=== PATIENT | male | born 1985 | race Caucasian/White ===

== ENCOUNTER 2023-05-01 07:33 | Outpatient (CLI) | payer MEDICAID, SELFPAY | END 2023-05-01 07:34 | disposition home or self-care (01) | LOC: NFLDREF 11:08 | PROVIDERS: PCP Family Medicine; Referring Provider Family Medicine; Visit Provider Family Medicine | DX: Z13.1 Encounter for screening for diabetes mellitus (principal); Z13.6 Encounter for screening for cardiovascular disorders | CPT/HCPCS: 80061; 82947 ==

== ENCOUNTER 2023-08-31 15:10 | Outpatient (CLI) | payer MEDICAID, SELFPAY | END 2023-08-31 15:11 | disposition home or self-care (01) | LOC: AMB 09-01 12:32 | PROVIDERS: PCP Family Medicine; Visit Provider Student in an Organized Health Care Education/Training Program | DX: F10.129 Alcohol abuse with intoxication, unspecified (principal) | CPT/HCPCS: A0425; A0427 ==

== ENCOUNTER 2023-08-31 15:24 | Emergency (ER) | payer MEDICAID, SELFPAY ==
[2023-08-31] VITALS (7 sets, daily range): BP systolic 112–120; BP diastolic 70–94; PULSE 99–135; RESP 16–18; TEMP 36.9–37.7; O2SAT 96–98; BMI 24.4
[2023-08-31] MEDS: 0.9 % SODIUM CHLORIDE 1000 ml 1,000 ML IV ×2 (16:12→19:23)
--- NOTE | 2023-08-31 16:13 | PC.NURSE ---
pt given food tray.
[2023-08-31 16:14] LABS: Basophils Absolute Auto 0.02 K/uL (0.00-0.30); Basophils Percent Auto 0.4 % (0.0-3.0); Eosinophils Absolute Auto 0.02 K/uL (0.00-0.50); Eosinophils Percent Auto 0.4 % (0.0-7.0); Hematocrit 53.8 % (37.0-53.0); Hemoglobin* 18.2 gm/dL (13.5-17.5); Immature Granulocytes Abs Auto 0.01 K/uL (0.00-0.30); Immature Granulocytes Pct Auto 0.2 %; Lymphocytes Absolute Auto 1.68 K/uL (0.90-2.90); Lymphocytes Percent Auto 31.1 % (20-44); Mean Corpuscular HGB Conc 34 gm/dL (32-36); Mean Corpuscular Hemoglobin 30 pg (26-34); Mean Corpuscular Volume 88 fL (80-100); Neutrophils Absolute Auto 3.41 K/uL (1.7-7.0); Neutrophils Percent Auto 62.9 % (42.0-72.0); Platelet Count* 223 K/uL (140-440); RDW Coefficient of Variation % 12.8 % (11.5-15.5); Red Blood Count 6.12 m/uL (4.30-5.90); White Blood Count* 5.41 K/uL (4.50-11.00)
[2023-08-31 16:16] LABS: Albumin* 4.8 g/dL (3.3-5.0); Chloride* 105 mmol/L (96-114); Potassium* 4.3 mmol/L (3.6-5.1); Sodium* 145 mmol/L (135-149)
[2023-08-31 16:18] LABS: Creatinine* 0.8 mg/dL (0.5-1.5); Estimated Glomerular Filt Rate 115 ml/min
[2023-08-31 16:19] LABS: Alanine Aminotransferase* 45 U/L (4-50); Alkaline Phosphatase* 95 U/L (40-150); Anion Gap 22 mEq/L (7-15); Aspartate Amino Transferase* 74 U/L (12-35); Bilirubin Total* 1.1 mg/dL (0.1-1.5); Blood Urea Nitrogen* 24 mg/dL (5-24); Calcium* 8.5 mg/dL (8.4-10.6); Carbon Dioxide* 18 mmol/L (20-32); Glucose* 86 mg/dL (60-115); Total Protein* 7.9 g/dL (6.0-8.3)
[2023-08-31 16:22] LABS: Slide Review Reflex No
[2023-08-31 16:37] LABS: Ethanol* 0.47 % (0.01-0.03)
--- NOTE | 2023-08-31 17:27 | PC.NURSE ---
Spoke with patient's Tonya. Tonya states pt has been trying to get control of his drinking, attending day treatment. Recently at [facility] in [place] for medical detox last March. Tonya did call and was told they didn't have an opening for pt until Monday. Tonya said pt has been working on sobriety for last year but every three months or so he slips.
--- NOTE | 2023-08-31 18:22 | PC.NURSE ---
pt requesting sandwich and coke to drink. states he has not been eating while staying at a nearby hotel. pt states he was staying at a [facility] in [place] but left to get hammered and has been in a hotel, eating a frozen meals last few days.
--- NOTE | 2023-08-31 18:55 | ED_ITS ---
HPI - General Adult General Date Seen: 08/31/23 <Daniele Ailyn Devon - Last Filed: 09/01/23 11:22> Chief complaint: Altered Mental Status <Daniele Osorio - Last Filed: 09/01/23 11:22> Stated complaint: ETOH <Daniele Osorio - Last Filed: 09/01/23 11:22> Time Seen by Provider: 08/31/23 15:33 <Daniele Ailyn Devon - Last Filed: 09/01/23 11:22> Source: patient <Daniele Osorio - Last Filed: 09/01/23 11:22> Mode of arrival: EMS <Daniele Osorio - Last Filed: 09/01/23 11:22> Limitations: no limitations <Daniele Osorio - Last Filed: 09/01/23 11:22> History of Present Illness HPI narrative: Patient is a 38-year-old male presenting to emergency department for alcohol intoxication. Patient has had issues with alcohol intoxication in the past and has been to multiple detox centers. He was living in a sober living home up until a few days ago when he left he moved into a hotel. He has been drinking however the for the past 2 days unsteady drink two 1.75 L follows of alcohol today. His significant other called in a well check on him and when they arrived he was very intoxicated. He was brought to the emergency department for this. He does states he has a history of ADHD and takes Adderall for but denies taking any extra doses today. Denies fevers, chills, chest pain, shortness of breath, headache, vision changes. Patient is slurring his words but is able a ambulate. <Danielejudith Osorio - Last Filed: 09/01/23 11:22> Related Data Home medications: Home Medications Medication Instructions Recorded Confirmed hydroxyzine HCl 50 mg tablet 50 mg PO BID PRN 11/03/22 05/11/23 Previous Rx's Medication Instructions Recorded escitalopram oxalate 10 mg tablet 10 mg PO DAILY #90 tabs 05/11/23 naltrexone 50 mg tablet 50 mg PO DAILY #90 tabs 05/11/23 trazodone 100 mg tablet 100 mg PO QHS PRN insomnia #90 tabs 05/11/23 dextroamphetamine-amphetamine ER 25 mg PO QAM #30 caps 07/12/23 25 mg 24hr capsule,extend release <Daniele Osorio DO - Last Filed: 09/01/23 11:22> Allergies/adverse reactions: Allergies Allergy/AdvReac Type Severity Reaction Status Date / Time Penicillins Allergy Mild Rash Verified 08/31/23 15:35 <Daniele Osorio DO - Last Filed: 09/01/23 11:22> Review of Systems Status of ROS: Reports: 10 or more systems reviewed and unremarkable except as noted in History and below <Daniele Osorio DO - Last Filed: 09/01/23 11:22> PFSH PFS Social History: Social History What is your current living situation?: I presently have a place to live In the past 12 months, utilities in danger of being shut off: no In past 12 months, lack of transportation kept you from medical appts, meetings, work, or getting things needed for daily living: no In the past 12 mos, have been you worried that your food would run out before you had money to buy more?: never true In the past 12 mos, the food you bought just didn't last and you didn't have money to buy more?: never true Smoking Status: Current every day smoker How often do you have a drink containing alcohol: 4 or more times a week How many standard drinks containing alcohol do you have on a typical day: 10 or more How often do you have six or more drinks on one occasion: Daily or almost daily AUDIT-C Alcohol total score: 12 Non-prescribed substance use: denies use How often does anyone, including family, friends and others, physically hurt you : never How often does anyone, including family, friends and others, insult or talk down to you: never How often does anyone, including family, friends and others, threaten you with harm: never How often does anyone, including family, friends and others, scream or curse at you: never Little interest or pleasure in doing things: not at all Feeling down, depressed, or hopeless: not at all service: No <DO Shruti Rosas Last Filed: 09/01/23 11:22> Exam Narrative: Exam Narrative: Const: Well-nourished, Well-developed, appears intoxicated Eyes: PERRL, no conjunctival injection, and symmetrical lids HENT: Atraumatic external nose and ears. Moist mucous membranes. Neck: Symmetric, trachea midline, No thyromegaly. CVS: RRR, No murmurs or gallops. Peripheral pulses 2+ and equal in all extremities RESP: Unlabored respiratory effort. Clear to auscultation bilaterally. GI: Nontender/Nondistended, No rebound or guarding. MSK:Extremities w/o deformity, Normal Active ROM Skin: Warm, Dry. No rashes or lesions. Neuro: Normal Muscle tone, No focal neurological deficits. Psych: Awake, Alert, & Oriented x3. <Daniele Osoiro DO - Last Filed: 09/01/23 11:22> Const: Vital Signs, click to edit/add: Vital Signs - 24 hr 08/31/23 15:31 08/31/23 15:35 08/31/23 15:48 Temperature 98.5 F Pulse Rate 100 113 H Pulse Rate [Right Pulse Oximeter] 99 Respiratory Rate 18 Blood Pressure [Ri ght Upper Arm] 118/94 H Pulse Oximetry 97 98 97 Oxygen Delivery Me thod Room Air 08/31/23 17:22 08/31/23 18:22 08/31/23 19:30 Temperature 99.7 F H 99.9 F H Pulse Rate Pulse Rate [Right Pulse Oximeter] 112 H 135 H 112 H Respiratory Rate 18 18 18 Blood Pressure [Ri ght Upper Arm] 120/74 117/77 117/70 Pulse Oximetry 96 97 97 Oxygen Delivery Me thod Room Air Room Air Room Air 08/31/23 19:59 Temperature 99.9 F H Pulse Rate Pulse Rate [Right Pulse Oximeter] 102 H Respiratory Rate 16 Blood Pressure [Ri ght Upper Arm] 112/80 Pulse Oximetry 98 Oxygen Delivery Me thod Room Air <Daniele Osorio DO - Last Filed: 09/01/23 11:22> Vital Signs, click to edit/add: Vital Signs - 24 hr 08/31/23 15:31 08/31/23 15:35 08/31/23 15:48 Temperature 98.5 F Pulse Rate 100 113 H Pulse Rate [Right Pulse Oximeter] 99 Respiratory Rate 18 Blood Pressure [Ri ght Upper Arm] 118/94 H Pulse Oximetry 97 98 97 Oxygen Delivery Me thod Room Air 08/31/23 17:22 08/31/23 18:22 08/31/23 19:30 Temperature 99.7 F H 99.9 F H Pulse Rate Pulse Rate [Right Pulse Oximeter] 112 H 135 H 112 H Respiratory Rate 18 18 18 Blood Pressure [Ri ght Upper Arm] 120/74 117/77 117/70 Pulse Oximetry 96 97 97 Oxygen Delivery Me thod Room Air Room Air Room Air 08/31/23 19:59 Temperature 99.9 F H Pulse Rate Pulse Rate [Right Pulse Oximeter] 102 H Respiratory Rate 16 Blood Pressure [Ri ght Upper Arm] 112/80 Pulse Oximetry 98 Oxygen Delivery Me thod Room Air <Richelle Freeman MD - Last Filed: 08/31/23 21:28> Course Vital Signs Vital signs: Initial Vital Signs Temperature 98.5 F 08/31/23 15:31 Temperature Source Temporal Artery Scan 08/31/23 15:31 Pulse Rate 99 08/31/23 15:31 Respiratory Rate 18 08/31/23 15:31 Blood Pressure 118/94 H 08/31/23 15:31 Blood Pressure Mean 102 08/31/23 15:31 Blood Pressure Position Supine 08/31/23 15:31 Pulse Oximetry 97 08/31/23 15:31 Oxygen Delivery Method Room Air 08/31/23 15:31 Vital Signs Temperature 98.5 F 08/31/23 15:31 Pulse Rate 99 08/31/23 15:31 Respiratory Rate 18 08/31/23 15:31 Blood Pressure 118/94 H 08/31/23 15:31 Pulse Oximetry 97 08/31/23 15:31 Oxygen Delivery Method Room Air 08/31/23 15:31 Temperature 99.9 F H 08/31/23 19:59 Pulse Rate 102 H 08/31/23 19:59 Respiratory Rate 16 08/31/23 19:59 Blood Pressure 112/80 08/31/23 19:59 Pulse Oximetry 98 08/31/23 19:59 Oxygen Delivery Method Room Air 08/31/23 19:59 <Daniele Osorio DO - Last Filed: 09/01/23 11:22> Initial Vital Signs Temperature 98.5 F 08/31/23 15:31 Temperature Source Temporal Artery Scan 08/31/23 15:31 Pulse Rate 99 08/31/23 15:31 Respiratory Rate 18 08/31/23 15:31 Blood Pressure 118/94 H 08/31/23 15:31 Blood Pressure Mean 102 08/31/23 15:31 Blood Pressure Position Supine 08/31/23 15:31 Pulse Oximetry 97 08/31/23 15:31 Oxygen Delivery Method Room Air 08/31/23 15:31 Vital Signs Temperature 98.5 F 08/31/23 15:31 Pulse Rate 99 08/31/23 15:31 Respiratory Rate 18 08/31/23 15:31 Blood Pressure 118/94 H 08/31/23 15:31 Pulse Oximetry 97 08/31/23 15:31 Oxygen Delivery Method Room Air 08/31/23 15:31 Temperature 99.9 F H 08/31/23 19:59 Pulse Rate 102 H 08/31/23 19:59 Respiratory Rate 16 08/31/23 19:59 Blood Pressure 112/80 08/31/23 19:59 Pulse Oximetry 98 08/31/23 19:59 Oxygen Delivery Method Room Air 08/31/23 19:59 <Richelle Freeman MD - Last Filed: 08/31/23 21:28> Medications Administered Medications: Discontinued Medications Generic Name Dose Route Start Last Admin Trade Name Rehan PRN Reason Stop Dose Admin Sodium Chloride 1,000 mls @ 1,000 mls/hr 08/31/23 16:00 08/31/23 18:13 0.9 % Sodium Chloride 1000 Ml IV 08/31/23 16:59 Infused .Q1H ISH Infusion Sodium Chloride 1,000 mls @ 1,000 mls/hr 08/31/23 19:15 08/31/23 19:23 0.9 % Sodium Chloride 1000 Ml IV 08/31/23 20:14 1,000 mls/hr .Q1H ISH Administration Lorazepam 0.5 mg 08/31/23 20:03 08/31/23 20:00 Lorazepam 2 Mg/Ml Inj IVP 08/31/23 20:04 0.5 mg ONCE ONE Administration Lorazepam 1 mg 08/31/23 21:21 08/31/23 21:28 Lorazepam 2 Mg/Ml Inj IVP 08/31/23 21:22 1 mg ONCE ONE Administration Thiamine HCl 100 mg 08/31/23 19:03 08/31/23 19:23 Thiamine 100 Mg Tablet PO 08/31/23 19:04 100 mg ONCE ONE Administration <Daniele Osorio DO - Last Filed: 09/01/23 11:22> Discontinued Medications Generic Name Dose Route Start Last Admin Trade Name Rehan PRN Reason Stop Dose Admin Sodium Chloride 1,000 mls @ 1,000 mls/hr 08/31/23 16:00 08/31/23 18:13 0.9 % Sodium Chloride 1000 Ml IV 08/31/23 16:59 Infused .Q1H ISH Infusion Sodium Chloride 1,000 mls @ 1,000 mls/hr 08/31/23 19:15 08/31/23 19:23 0.9 % Sodium Chloride 1000 Ml IV 08/31/23 20:14 1,000 mls/hr .Q1H ISH Administration Lorazepam 0.5 mg 08/31/23 20:03 08/31/23 20:00 Lorazepam 2 Mg/Ml Inj IVP 08/31/23 20:04 0.5 mg ONCE ONE Administration Lorazepam 1 mg 08/31/23 21:21 08/31/23 21:28 Lorazepam 2 Mg/Ml Inj IVP 08/31/23 21:22 1 mg ONCE ONE Administration Thiamine HCl 100 mg 08/31/23 19:03 08/31/23 19:23 Thiamine 100 Mg Tablet PO 08/31/23 19:04 100 mg ONCE ONE Administration <Richelle Freeman MD - Last Filed: 08/31/23 21:28> Medical Decision Making MDM Narrative Medical decision making narrative: Patient is a 38-year-old male presents to the emergency department for alcohol intoxication. Cbc and CMP were ordered. Also ordered an alcohol level. The alcohol level 0.47. Cbc and CMP showed no concerning abnormalities. He is quite obviously very drunk but has been ambulating to his bathroom and back. He is 30 his words but is able to communicate. At this time he is agreeable for for detox. Patient has been given food and water. Patient was very anxious and was given a small dose of Ativan. He is accepted for transfer for detox center but his alcohol of SB under 0.4. We will recheck his EtOH. Patient signed out to Dr. Freeman pending final transfer <Daniele Osorio DO - Last Filed: 09/01/23 11:22> Patient is a 38-year-old male presents to the emergency department for alcohol intoxication. Cbc and CMP were ordered. Also ordered an alcohol level. The alcohol level 0.47. Cbc and CMP showed no concerning abnormalities. He is quite obviously very drunk but has been ambulating to his bathroom and back. He is 30 his words but is able to communicate. At this time he is agreeable for for detox. Patient has been given food and water. Patient was very anxious and was given a small dose of Ativan. He is accepted for transfer for detox center but his alcohol of SB under 0.4. We will recheck his EtOH. Patient signed out to Dr. Freeman pending final transfer I was asked by previous physician to document 2nd alcohol level and transfer of patient. Second alcohol level comes back at 0.28 and [facility] detox will accept patient. He travels by ground BLS ambulance. Prior to discharge nursing requests Ativan and 1 mg IV is ordered. Patient is placed on a transfer hold but is going voluntarily. <Richelle Freeman MD - Last Filed: 08/31/23 21:28> Lab Data Labs: Lab Results 08/31/23 08/31/23 08/31/23 Range/Units 15:48 15:48 19:10 WBC 5.41 (4.50-11.00) K/uL RBC 6.12 H (4.30-5.90) m/uL Hgb 18.2 H (13.5-17.5) gm/dL Hct 53.8 H (37.0-53.0) % MCV 88 (80-100) fL MCH 30 (26-34) pg MCHC 34 (32-36) gm/dL RDW Coeff of Amanda 12.8 (11.5-15.5) % Plt Count 223 (140-440) K/uL Neut % (Auto) 62.9 (42.0-72.0) % Lymph % (Auto) 31.1 (20-44) % [place] % (Auto) 5.0 (0.0-11.0) % Eos % (Auto) 0.4 (0.0-7.0) % Baso % (Auto) 0.4 (0.0-3.0) % Neut # (Auto) 3.41 (1.7-7.0) K/uL Lymph # (Auto) 1.68 (0.90-2.90) K/uL [place] # (Auto) 0.30 (0.00-0.90) K/UL Eos # (Auto) 0.02 (0.00-0.50) K/uL Baso # (Auto) 0.02 (0.00-0.30) K/uL Abs Immat Gran (auto) 0.01 (0.00-0.30) K/uL Imm/Tot Granulo (auto) 0.2 % Sodium 145 (135-149) mmol/L Potassium 4.3 (3.6-5.1) mmol/L Chloride 105 (96-114) mmol/L Carbon Dioxide 18 L (20-32) mmol/L Anion Gap 22 H (7-15) mEq/L BUN 24 (5-24) mg/dL Creatinine 0.8 (0.5-1.5) mg/dL Estimated Creat Clear 128.00 Estimated GFR 115 ml/min Glucose 86 (60-115) mg/dL Calcium 8.5 (8.4-10.6) mg/dL Total Bilirubin 1.1 (0.1-1.5) mg/dL AST 74 H (12-35) U/L ALT 45 (4-50) U/L Alkaline Phosphatase 95 (40-150) U/L Total Protein 7.9 (6.0-8.3) g/dL Albumin 4.8 (3.3-5.0) g/dL Urine Color (Yellow) Urine Appearance (Clear) Urine pH (5.0-8.5) Ur Specific [place] (1.000-1.030) Urine Protein (Negative) Urine Glucose (UA) (Negative) Urine Ketones (Negative) Urine Blood (Negative) Urine Nitrite (Negative) Urine Bilirubin (Negative) Urine Urobilinogen (0.2-1.0) Ur Leukocyte Esterase (Negative) Urine RBC (0-2) Urine WBC (0-5) Ur Squamous Epith Cells (None-Few) Urine Bacteria (None) Urine Opiates Screen (Negative) Ur Oxycodone Screen (Negative) Urine Methadone Screen (Negative) Ur Propoxyphene Screen Ur Barbiturates Screen (Negative) U Tricyclic Antidepress (Negative) Ur Phencyclidine Scrn (Negative) Ur Amphetamines Screen (Negative) U Methamphetamines Scrn (Negative) U Benzodiazepines Scrn (Negative) Urine Cocaine Screen (Negative) U Marijuana (THC) Screen (Negative) Ur Drug Screen Comment Ethyl Alcohol Cancelled 0.47 H* 0.28 H 08/31/23 Range/Units 20:10 WBC (4.50-11.00) K/uL RBC (4.30-5.90) m/uL Hgb (13.5-17.5) gm/dL Hct (37.0-53.0) % MCV (80-100) fL MCH (26-34) pg MCHC (32-36) gm/dL RDW Coeff of Amanda (11.5-15.5) % Plt Count (140-440) K/uL Neut % (Auto) (42.0-72.0) % Lymph % (Auto) (20-44) % [place] % (Auto) (0.0-11.0) % Eos % (Auto) (0.0-7.0) % Baso % (Auto) (0.0-3.0) % Neut # (Auto) (1.7-7.0) K/uL Lymph # (Auto) (0.90-2.90) K/uL [place] # (Auto) (0.00-0.90) K/UL Eos # (Auto) (0.00-0.50) K/uL Baso # (Auto) (0.00-0.30) K/uL Abs Immat Gran (auto) (0.00-0.30) K/uL Imm/Tot Granulo (auto) % Sodium (135-149) mmol/L Potassium (3.6-5.1) mmol/L Chloride (96-114) mmol/L Carbon Dioxide (20-32) mmol/L Anion Gap (7-15) mEq/L BUN (5-24) mg/dL Creatinine (0.5-1.5) mg/dL Estimated Creat Clear Estimated GFR ml/min Glucose (60-115) mg/dL Calcium (8.4-10.6) mg/dL Total Bilirubin (0.1-1.5) mg/dL AST (12-35) U/L ALT (4-50) U/L Alkaline Phosphatase (40-150) U/L Total Protein (6.0-8.3) g/dL Albumin (3.3-5.0) g/dL Urine Color Radha A (Yellow) Urine Appearance Clear (Clear) Urine pH 5.5 (5.0-8.5) Ur Specific Jacob[place] >= 1.030 (1.000-1.030) Urine Protein 2+ A (Negative) Urine Glucose (UA) Negative (Negative) Urine Ketones 2+ A (Negative) Urine Blood Negative (Negative) Urine Nitrite Negative (Negative) Urine Bilirubin Negative (Negative) Urine Urobilinogen 0.2 (0.2-1.0) Ur Leukocyte Esterase Negative (Negative) Urine RBC 0-2 (0-2) Urine WBC 0-2 (0-5) Ur Squamous Epith Cells None (None-Few) Urine Bacteria None (None) Urine Opiates Screen Negative (Negative) Ur Oxycodone Screen Negative (Negative) Urine Methadone Screen Negative (Negative) Ur Propoxyphene Screen Not Reportable Ur Barbiturates Screen Negative (Negative) U Tricyclic Antidepress Negative (Negative) Ur Phencyclidine Scrn Negative (Negative) Ur Amphetamines Screen Negative (Negative) U Methamphetamines Scrn Negative (Negative) U Benzodiazepines Scrn Negative (Negative) Urine Cocaine Screen Negative (Negative) U Marijuana (THC) Screen POSITIVE A (Negative) Ur Drug Screen Comment See Note Ethyl Alcohol <Daniele Osorio, DO - Last Filed: 09/01/23 11:22> Lab Results 08/31/23 08/31/23 08/31/23 Range/Units 15:48 15:48 19:10 WBC 5.41 (4.50-11.00) K/uL RBC 6.12 H (4.30-5.90) m/uL Hgb 18.2 H (13.5-17.5) gm/dL Hct 53.8 H (37.0-53.0) % MCV 88 (80-100) fL MCH 30 (26-34) pg MCHC 34 (32-36) gm/dL RDW Coeff of Amanda 12.8 (11.5-15.5) % Plt Count 223 (140-440) K/uL Neut % (Auto) 62.9 (42.0-72.0) % Lymph % (Auto) 31.1 (20-44) % [place] % (Auto) 5.0 (0.0-11.0) % Eos % (Auto) 0.4 (0.0-7.0) % Baso % (Auto) 0.4 (0.0-3.0) % Neut # (Auto) 3.41 (1.7-7.0) K/uL Lymph # (Auto) 1.68 (0.90-2.90) K/uL [place] # (Auto) 0.30 (0.00-0.90) K/UL Eos # (Auto) 0.02 (0.00-0.50) K/uL Baso # (Auto) 0.02 (0.00-0.30) K/uL Abs Immat Gran (auto) 0.01 (0.00-0.30) K/uL Imm/Tot Granulo (auto) 0.2 % Sodium 145 (135-149) mmol/L Potassium 4.3 (3.6-5.1) mmol/L Chloride 105 (96-114) mmol/L Carbon Dioxide 18 L (20-32) mmol/L Anion Gap 22 H (7-15) mEq/L BUN 24 (5-24) mg/dL Creatinine 0.8 (0.5-1.5) mg/dL Estimated Creat Clear 128.00 Estimated GFR 115 ml/min Glucose 86 (60-115) mg/dL Calcium 8.5 (8.4-10.6) mg/dL Total Bilirubin 1.1 (0.1-1.5) mg/dL AST 74 H (12-35) U/L ALT 45 (4-50) U/L Alkaline Phosphatase 95 (40-150) U/L Total Protein 7.9 (6.0-8.3) g/dL Albumin 4.8 (3.3-5.0) g/dL Urine Color (Yellow) Urine Appearance (Clear) Urine pH (5.0-8.5) Ur Specific [place] (1.000-1.030) Urine Protein (Negative) Urine Glucose (UA) (Negative) Urine Ketones (Negative) Urine Blood (Negative) Urine Nitrite (Negative) Urine Bilirubin (Negative) Urine Urobilinogen (0.2-1.0) Ur Leukocyte Esterase (Negative) Urine RBC (0-2) Urine WBC (0-5) Ur Squamous Epith Cells (None-Few) Urine Bacteria (None) Urine Opiates Screen (Negative) Ur Oxycodone Screen (Negative) Urine Methadone Screen (Negative) Ur Propoxyphene Screen Ur Barbiturates Screen (Negative) U Tricyclic Antidepress (Negative) Ur Phencyclidine Scrn (Negative) Ur Amphetamines Screen (Negative) U Methamphetamines Scrn (Negative) U Benzodiazepines Scrn (Negative) Urine Cocaine Screen (Negative) U Marijuana (THC) Screen (Negative) Ur Drug Screen Comment Ethyl Alcohol Cancelled 0.47 H* 0.28 H 08/31/23 Range/Units 20:10 WBC (4.50-11.00) K/uL RBC (4.30-5.90) m/uL Hgb (13.5-17.5) gm/dL Hct (37.0-53.0) % MCV (80-100) fL MCH (26-34) pg MCHC (32-36) gm/dL RDW Coeff of Amanda (11.5-15.5) % Plt Count (140-440) K/uL Neut % (Auto) (42.0-72.0) % Lymph % (Auto) (20-44) % [place] % (Auto) (0.0-11.0) % Eos % (Auto) (0.0-7.0) % Baso % (Auto) (0.0-3.0) % Neut # (Auto) (1.7-7.0) K/uL Lymph # (Auto) (0.90-2.90) K/uL [place] # (Auto) (0.00-0.90) K/UL Eos # (Auto) (0.00-0.50) K/uL Baso # (Auto) (0.00-0.30) K/uL Abs Immat Gran (auto) (0.00-0.30) K/uL Imm/Tot Granulo (auto) % Sodium (135-149) mmol/L Potassium (3.6-5.1) mmol/L Chloride (96-114) mmol/L Carbon Dioxide (20-32) mmol/L Anion Gap (7-15) mEq/L BUN (5-24) mg/dL Creatinine (0.5-1.5) mg/dL Estimated Creat Clear Estimated GFR ml/min Glucose (60-115) mg/dL Calcium (8.4-10.6) mg/dL Total Bilirubin (0.1-1.5) mg/dL AST (12-35) U/L ALT (4-50) U/L Alkaline Phosphatase (40-150) U/L Total Protein (6.0-8.3) g/dL Albumin (3.3-5.0) g/dL Urine Color Radha A (Yellow) Urine Appearance Clear (Clear) Urine pH 5.5 (5.0-8.5) Ur Specific [place] >= 1.030 (1.000-1.030) Urine Protein 2+ A (Negative) Urine Glucose (UA) Negative (Negative) Urine Ketones 2+ A (Negative) Urine Blood Negative (Negative) Urine Nitrite Negative (Negative) Urine Bilirubin Negative (Negative) Urine Urobilinogen 0.2 (0.2-1.0) Ur Leukocyte Esterase Negative (Negative) Urine RBC 0-2 (0-2) Urine WBC 0-2 (0-5) Ur Squamous Epith Cells None (None-Few) Urine Bacteria None (None) Urine Opiates Screen Negative (Negative) Ur Oxycodone Screen Negative (Negative) Urine Methadone Screen Negative (Negative) Ur Propoxyphene Screen Not Reportable Ur Barbiturates Screen Negative (Negative) U Tricyclic Antidepress Negative (Negative) Ur Phencyclidine Scrn Negative (Negative) Ur Amphetamines Screen Negative (Negative) U Methamphetamines Scrn Negative (Negative) U Benzodiazepines Scrn Negative (Negative) Urine Cocaine Screen Negative (Negative) U Marijuana (THC) Screen POSITIVE A (Negative) Ur Drug Screen Comment See Note Ethyl Alcohol <Richelle Freeman MD - Last Filed: 08/31/23 21:28> Discharge Plan Discharge Prescriptions: No Action hydroxyzine HCl 50 mg tablet 50 mg PO BID PRN escitalopram oxalate 10 mg tablet 10 mg PO DAILY Qty: 90 3RF naltrexone 50 mg tablet 50 mg PO DAILY Qty: 90 3RF trazodone 100 mg tablet 100 mg PO QHS PRN (Reason: insomnia) Qty: 90 3RF dextroamphetamine-amphetamine 25 mg capsule,extended release 24hr 25 mg PO QAM Qty: 30 0RF Rx Instructions: Follow due Oct 2023 <Daniele Osorio DO - Last Filed: 09/01/23 11:22> Follow Up/Referrals: Shahid Mcdonnell MD [Primary Care Provider] - <Daniele Osorio DO - Last Filed: 09/01/23 11:22>
--- NOTE | 2023-08-31 19:17 | PC.NURSE ---
[facility] accepts pt. Will call back with ETA after transport arranged. Spoke with Maryana # .
[2023-08-31] MEDS: THIAMINE 100 MG TABLET PO (19:23)
[2023-08-31] MEDS: LORazepam 2 MG/ML inj 0.5 MG IVP (20:00)
[2023-08-31 20:18] LABS: Ethanol* 0.28 % (0.01-0.03)
[2023-08-31 20:21] LABS: Appearance Urine Clear (Clear); Bilirubin Urine Negative (Negative); Blood Urine Negative (Negative); Color Urine Amber (Yellow); Glucose Urine Negative (Negative); Ketones Urine 2+ (Negative); Leukocyte Esterase Urine Negative (Negative); Nitrite Urine Negative (Negative); Protein Urine 2+ (Negative); Specific Gravity Urine >= 1.030 (1.000-1.030); Urobilinogen Urine 0.2 (0.2-1.0); pH Urine 5.5 (5.0-8.5)
[2023-08-31 20:28] LABS: Amphetamine Screen Urine Negative (Negative); Barbiturate Screen Urine Negative (Negative); Benzodiazepines Screen Urine Negative (Negative); Cannabinoid Screen Urine POSITIVE (Negative); Cocaine Screen Urine Negative (Negative); Methadone Screen Urine Negative (Negative); Methamphetamines Screen Urine Negative (Negative); Opiate Screen Urine Negative (Negative); Oxycodone Screen Urine Negative (Negative); Phencyclidine Screen Urine Negative (Negative); Tricyclic Antidepressant Urine Negative (Negative)
[2023-08-31 20:31] LABS: RBC Urine 0-2 (0-2); WBC Urine 0-2 (0-5)
[2023-08-31] MEDS: LORazepam 2 MG/ML inj 1 MG IVP (21:28)
--- NOTE | 2023-08-31 21:28 | PC.NURSE ---
[facility] here, report given. Ativan 1mg given prior to transfer.
== END 2023-08-31 21:33 | disposition home or self-care (01) ==
PROVIDERS: Emergency Provider Student in an Organized Health Care Education/Training Program; PCP Family Medicine
DX: F10.129 Alcohol abuse with intoxication, unspecified (principal); Y90.1 Blood alcohol level of 20-39 mg/100 ml
CPT/HCPCS: 36415; 80053; 80306; 81003; 81015; 82077; 85025; 96374; 96376; 99283; A9270; J2060; J7030

== ENCOUNTER 2023-08-31 21:18 | Outpatient (CLI) | payer MEDICAID, SELFPAY | END 2023-08-31 21:19 | disposition home or self-care (01) | LOC: AMB 09-07 16:18 | PROVIDERS: PCP Family Medicine; Visit Provider Family Medicine | DX: F10.20 Alcohol dependence, uncomplicated (principal) | CPT/HCPCS: A0425; A0428 ==

== ENCOUNTER 2024-01-04 21:48 | Outpatient (CLI) | payer MEDICAID, SELFPAY | END 2024-01-04 21:49 | disposition home or self-care (01) | LOC: AMB 01-07 05:32 | PROVIDERS: PCP Family Medicine; Visit Provider Emergency Medicine | DX: F10.129 Alcohol abuse with intoxication, unspecified (principal); S09.90XA Unspecified injury of head, initial encounter; S59.912A Unspecified injury of left forearm, initial encounter; W18.30XA Fall on same level, unspecified, initial encounter; Y92.512 Supermarket, store or market as the place of occurrence of the external cause | CPT/HCPCS: A0425; A0427 ==

== ENCOUNTER 2024-01-04 22:16 | Emergency (ER) | payer MEDICAID, SELFPAY ==
[2024-01-04] VITALS (8 sets, daily range): BP systolic 111–132; BP diastolic 75–88; PULSE 100–109; TEMP 36.6; O2SAT 98–100; BMI 24.4
[2024-01-04] MEDS: fentaNYL 100 MCG/2 ML inj 50 MCG IVP ×4 (22:25→23:52)
--- NOTE | 2024-01-04 22:28 | XR_ITS ---
Patient: NIGEL FLORES Facility:?[facility] Patient ID:?[id number] Site Patient ID:?[id number]. Site :?[id number] Study:?XRay-Extremity Left ELBOW 2 VIEWS-01/04/2024 11:04:33 PM Ordering Physician:CODY Final Report: INDICATION: Left elbow injury and pain. TECHNIQUE: Left elbow 2 view. COMPARISON: None. FINDINGS: There is posterior dislocation of the radius and ulna relative to the humerus. Fracture fragment along the anterior joint space may be arising from the coronoid process of the ulna. Mild posterior soft tissue swelling. IMPRESSION: Elbow dislocation with fracture fragment along the anterior joint space. Dictated by Caitlin Dawkins MD @ 01/04/2024 11:13:56 PM Signed by:?Caitlin Dawkins MD @01/04/2024 11:13:56 PM (Electronic Signature)
[2024-01-04] MEDS: KETOROLAC 15 MG/ML inj IVP (22:42)
[2024-01-04] MEDS: 0.9 % SODIUM CHLORIDE 1000 ml 1,000 ML IV ×2 (22:42→23:56)
[2024-01-04 22:56] LABS: Basophils Absolute Auto 0.03 K/uL (0.00-0.30); Basophils Percent Auto 0.3 % (0.0-3.0); Eosinophils Absolute Auto 0.22 K/uL (0.00-0.50); Eosinophils Percent Auto 2.2 % (0.0-7.0); Hematocrit 48.1 % (37.0-53.0); Hemoglobin* 16.3 gm/dL (13.5-17.5); Immature Granulocytes Abs Auto 0.06 K/uL (0.00-0.30); Immature Granulocytes Pct Auto 0.6 %; Lymphocytes Absolute Auto 2.91 K/uL (0.90-2.90); Lymphocytes Percent Auto 28.6 % (20-44); Mean Corpuscular HGB Conc 34 gm/dL (32-36); Mean Corpuscular Hemoglobin 30 pg (26-34); Mean Corpuscular Volume 89 fL (80-100); Monocytes Percent Auto 4.3 % (0.0-11.0); Neutrophils Absolute Auto 6.53 K/uL (1.7-7.0); Platelet Count* 231 K/uL (140-440); RDW Coefficient of Variation % 12.6 % (11.5-15.5); Red Blood Count 5.38 m/uL (4.30-5.90); White Blood Count* 10.19 K/uL (4.50-11.00)
[2024-01-04 23:01] LABS: Slide Review Reflex No
--- NOTE | 2024-01-04 23:09 | CT_ITS ---
Patient: NIGEL FLORES Facility:?[facility] Patient ID:?[id number] Site Patient ID:?[id number]. Site :?1985 Study:?CT-Chest/Abd/Pelvis W/ISOVUE 370 83CC-01/04/2024 11:58:07 PM Ordering Physician:CODY Final Report: Indication: Fall while intoxicated, left abdominal tenderness Technique: Postcontrast CT of the chest, abdomen, and pelvis with multiplanar reformats following 83 mL Isovue 370 IV. Comparison: None Findings: Chest: Lungs: No consolidation. No effusion. No pneumothorax. Mediastinum: No acute abnormality appreciated. Lymph nodes: No gross lymphadenopathy. Soft tissues: No acute abnormality appreciated. Bones: No acute abnormality appreciated. Abdomen and Pelvis: Hepatobiliary: No significant parenchymal abnormality is appreciated. Spleen: Unremarkable. Pancreas: No acute abnormality appreciated. Adrenal glands: No acute abnormality appreciated. Kidneys: No significant parenchymal abnormality appreciated. No visualized calculi. No hydronephrosis. Bowel: No obstruction. No focal perienteric or pericolonic stranding is appreciated. The appendix is visualized and appears unremarkable. Vascular: No acute abnormality appreciated. Lymph nodes: No gross lymphadenopathy. Peritoneum: No free air. No free fluid. : No acute abnormality appreciated. Right testicle is within the inguinal canal. Soft tissues: No acute abnormality appreciated. Bones: No acute fracture. No lytic or blastic lesion. Impression: 1. No acute abnormality appreciated. 2. Right testicle is within the inguinal canal. Correlation for transient exaggerated cremasteric reflex versus cryptorchidism recommended. Please note that all CT scans at this facility use dose modulation, iterative reconstruction, and/or weight-based dosing when appropriate to reduce radiation dose to as low as reasonably achievable. Dictated by Tripp Phillips MD @ 01/05/2024 12:05:40 AM Signed by:?Tripp Phillips MD @01/05/2024 12:05:40 AM (Electronic Signature)
--- NOTE | 2024-01-04 23:09 | CT_ITS ---
Patient: NIGEL FLORES Facility:?[facility] Patient ID:?[id number] Site Patient ID:?[id number] Site :?1985 Study:?CT-Head W/O-01/04/2024 11:55:29 PM Ordering Physician:CODY Final Report: Indication: Fall while intoxicated Technique: Noncontrast CT through the head with multiplanar reformats Comparison: CT head performed 09/14/2020 Findings: Brain: No acute hemorrhage. No acute infarct. No significant mass effect or midline shift. No gross evidence of a mass lesion or cerebral edema. Ventricles: No acute abnormality appreciated. Orbits, sinuses, mastoids: No acute abnormality appreciated. Calvarium and soft tissues: No acute abnormality appreciated. Impression: No acute abnormality appreciated. Please note that all CT scans at this facility use dose modulation, iterative reconstruction, and/or weight-based dosing when appropriate to reduce radiation dose to as low as reasonably achievable. Dictated by Tripp Phillips MD @ 01/05/2024 12:00:27 AM Signed by:?Tripp Phillips MD @01/05/2024 12:00:27 AM (Electronic Signature)
--- NOTE | 2024-01-04 23:09 | CT_ITS ---
Patient: NIGEL FLORES Facility:?[facility] Patient ID:?[id number] Site Patient ID:?[id number]. Site :?1985 Study:?CT-Spine C SPINE-01/04/2024 11:56:48 PM Ordering Physician:CODY Final Report: Indication: Fall while intoxicated Technique: Noncontrast CT through the cervical spine with multiplanar reformats Comparison: None Findings: Mild motion degradation. Alignment: Slight rightward lateral listing. Nonspecific reversal of the normal lordotic curvature. Bones: No acute fracture. No lytic or blastic lesion. Cervical levels: No acute abnormality appreciated. Soft tissues: No acute abnormality appreciated. Impression: Allowing for motion degradation, no acute abnormality is appreciated. Please note that all CT scans at this facility use dose modulation, iterative reconstruction, and/or weight-based dosing when appropriate to reduce radiation dose to as low as reasonably achievable. Dictated by Tripp Phillips MD @ 01/05/2024 12:02:00 AM Signed by:?Tripp Phillips MD @01/05/2024 12:02:00 AM (Electronic Signature)
--- NOTE | 2024-01-04 23:10 | ED_ITS ---
HPI - General Adult General Date Seen: 01/04/24 Chief complaint: Fall/Minor Trauma Stated complaint: Broken Arm Time Seen by Provider: 01/04/24 22:28 History of Present Illness HPI narrative: 38-year-old male with a history of alcohol abuse for and stenting to the ER tonight by EMS for evaluation of injuries after a fall. History from the patient is limited by alcohol intoxication. What I can gather from the patient is that he is an alcoholic. He had been t [facility] an alcohol treatment center for about 2 months and got out a couple of months ago. He had a couple of months of sobriety. He says he had a fight with his girlfriend a few days ago and his relapse. He has been drinking approximately a L of vodka per day since then. He can not really tell me how many days he has been drinking. He says, ?a few. ? He was drinking today. He had actually walked to the liquor store to buy more alcohol tonight. He was hurrying to walk to [employer] store. He went there and he was turned down for sale because he was showing signs of intoxicatio. He says he had left liquor store. He recalls getting very dizzy and then falling over backwards. He does not know what happened. He hit the back of his head on the ground. He has tremendous pain in his left arm and elbow. He is not able to tell me what else hurts. History from EMS is that they were called because he had a ground level fall. They note that he had an obvious deformity around the left elbow. He seemed intoxicated. He has signs of an abrasion on the back of his head without any active bleeding. They established an IV. Given his high degree of intoxication they were not comfortable administering any opiates due to risk for over- sedation. He was placed into a Del splint for his left elbow. Related Data Previous Rx's Medication Instructions Recorded hydroxyzine HCl 50 mg tablet 50 mg PO BID PRN anxiety #60 tabs 10/27/23 naltrexone 50 mg tablet 50 mg PO DAILY #30 tabs 10/27/23 trazodone 100 mg tablet 100 mg PO QHS PRN insomnia #30 tabs 10/27/23 escitalopram oxalate 20 mg tablet 20 mg PO QDAY #90 tabs 11/16/23 Allergies Allergy/AdvReac Type Severity Reaction Status Date / Time Penicillins Allergy Mild Rash Verified 11/16/23 07:34 [facility] Social History What is your current living situation?: I presently have a place to live In the past 12 months, utilities in danger of being shut off: no In past 12 months, lack of transportation kept you from medical appts, meetings, work, or getting things needed for daily living: no In the past 12 mos, have been you worried that your food would run out before you had money to buy more?: never true In the past 12 mos, the food you bought just didn't last and you didn't have money to buy more?: never true Smoking Status: Current every day smoker How often do you have a drink containing alcohol: 4 or more times a week How many standard drinks containing alcohol do you have on a typical day: 10 or more How often do you have six or more drinks on one occasion: Daily or almost daily AUDIT-C Alcohol total score: 12 Non-prescribed substance use: denies use How often does anyone, including family, friends and others, physically hurt you : never How often does anyone, including family, friends and others, insult or talk down to you: never How often does anyone, including family, friends and others, threaten you with harm: never How often does anyone, including family, friends and others, scream or curse at you: never Little interest or pleasure in doing things: not at all Feeling down, depressed, or hopeless: several days service: No Exam Narrative: Exam Narrative: Primary Survey: A- patent. Speaking rapidly. Speech is slurred with intoxication. Airway patent Phonation normal. No stridor. B- breathing easily. Lung sounds clear and equal. Oxygen saturation normal on room air C- no active bleeding. Blood pressure stable. Symmetric pulses and cap refill in 4 extremities. D- alert and oriented x3 but is slurring his speech and behaving in a manner is suggestive of alcohol intoxication.. GCS 15. No focal deficits. He has a lot of pain in his left arm but does have intact radial, median, ulnar nerve sensory function in the left hand. Strong distal radial pulse in the left hand. Constitutional: Appears well-developed and well-nourished. Alert. Conversant. Non toxic. HENT: Head: Abrasions on occiput. No depressed skull fracture. No raccoon eyes. No hemotympanum. No Díaz sign.. Nose: Nose normal. Mouth/Throat: Oral mucosa is clear and moist. no trismus. Pharynx normal. Tonsils symmetric. No tonsillar enlargement, erythema, or exudate. Eyes: Conjunctivae normal. EOM normal. Pupils equal, round, and reactive to light. No scleral icterus. Neck: Normal range of motion. Neck supple. No tracheal deviation present. Cannot clear C-spine because of his distracting injury and intoxication. Cardiovascular: Normal rate, regular rhythm. No gallop. No friction rub. No murmur heard. Symmetric radial artery pulses Pulmonary/Chest: Effort normal. No stridor. No respiratory distress. No wheezes. No rales. No rhonchi . Left lower rib cage tenderness. Abdominal: Soft. Bowel sounds normal. No distension. No mass. Marked left upper quadrant and left lower rib cage tenderness. No rebound. No guarding. Musculoskeletal: RUE: Normal range of motion. No tenderness. No deformity Clavicle and shoulder nontender. He has tenderness of the distal half of the humerus and elbow where there is an obvious deformity. Suspect either a posteriorly displaced distal humerus fracture or possibly a posteriorly displaced elbow dislocation. Tenderness of his forearm. No tenderness of his wrist or hand. Range of motion the elbow limited by pain. RLE: Normal range of motion. No edema. No tenderness. No deformity LLE: Normal range of motion. No edema. No tenderness. No deformity Neurological: Alert and oriented to person, place, and time. Normal strength. CN II-VII intact. No sensory deficit. GCS eye subscore is 4. GCS verbal subscore is 5. GCS motor subscore is 6. Normal coordination Skin: Skin is warm and dry. No rash noted. No pallor. Normal capillary refill. Psychiatric: He is in pain and agitated because of that. Overall polite and cooperative. He is definitely intoxicated with alcohol. Endorses heavy alcohol use over recent days. His girlfriend is not willing to come to be with him tonight because of his elevated alcohol level. Const: Vital Signs, click to edit/add: Vital Signs - 24 hr 01/04/24 22:24 01/04/24 22:50 01/04/24 22:50 Temperature 97.9 F Pulse Rate Pulse Rate [Pulse Oximeter] 105 H Respiratory Rate Blood Pressure 132/88 Blood Pressure [Ri ght Upper Arm] 111/75 Pulse Oximetry 99 98 Oxygen Delivery Me thod Room Air Oxygen Flow Rate 01/04/24 23:01 01/04/24 23:13 01/04/24 23:15 Temperature Pulse Rate 100 102 H Pulse Rate [Pulse Oximeter] Respiratory Rate Blood Pressure 125/84 Blood Pressure [Ri ght Upper Arm] Pulse Oximetry 100 100 Oxygen Delivery Me thod Oxygen Flow Rate 01/04/24 23:16 01/04/24 23:21 01/04/24 23:46 Temperature Pulse Rate 104 H 109 H Pulse Rate [Pulse Oximeter] Respiratory Rate Blood Pressure 125/85 127/87 Blood Pressure [Ri ght Upper Arm] Pulse Oximetry 100 99 Oxygen Delivery Me thod Oxygen Flow Rate 01/05/24 00:00 01/05/24 00:01 01/05/24 00:01 Temperature Pulse Rate 104 H 108 H 108 H Pulse Rate [Pulse Oximeter] Respiratory Rate Blood Pressure 127/71 127/71 Blood Pressure [Ri ght Upper Arm] Pulse Oximetry 98 98 98 Oxygen Delivery Me thod Oxygen Flow Rate 01/05/24 00:01 01/05/24 00:02 01/05/24 00:21 Temperature Pulse Rate 108 H 102 H Pulse Rate [Pulse Oximeter] Respiratory Rate Blood Pressure 127/71 119/68 Blood Pressure [Ri ght Upper Arm] Pulse Oximetry 98 99 Oxygen Delivery Me thod Oxygen Flow Rate 01/05/24 00:25 01/05/24 00:26 01/05/24 00:27 Temperature Pulse Rate 109 H 107 H Pulse Rate [Pulse Oximeter] Respiratory Rate Blood Pressure 117/73 127/87 Blood Pressure [Ri ght Upper Arm] Pulse Oximetry 99 100 Oxygen Delivery Me thod Oxygen Flow Rate 01/05/24 00:30 01/05/24 00:31 01/05/24 00:38 Temperature Pulse Rate 108 H 109 H 114 H Pulse Rate [Pulse Oximeter] Respiratory Rate 9 L Blood Pressure 115/90 H 115/81 Blood Pressure [Ri ght Upper Arm] Pulse Oximetry 100 100 100 Oxygen Delivery Me thod Oxygen Flow Rate 01/05/24 00:40 01/05/24 00:40 01/05/24 00:41 Temperature Pulse Rate 112 H Pulse Rate [Pulse Oximeter] 106 H Respiratory Rate 20 6 L Blood Pressure 115/69 Blood Pressure [Ri ght Upper Arm] 122/83 Pulse Oximetry 94 94 94 Oxygen Delivery Me thod Nasal Cannula Nasal Cannula Oxygen Flow Rate 2 2 01/05/24 00:45 01/05/24 00:46 01/05/24 00:51 Temperature Pulse Rate 113 H 113 H 111 H Pulse Rate [Pulse Oximeter] Respiratory Rate 12 4 L 6 L Blood Pressure 118/73 122/83 Blood Pressure [Ri ght Upper Arm] Pulse Oximetry 97 97 98 Oxygen Delivery Me thod Oxygen Flow Rate 01/05/24 00:51 01/05/24 01:00 01/05/24 01:02 Temperature Pulse Rate 111 H 104 H 104 H Pulse Rate [Pulse Oximeter] Respiratory Rate 6 L 10 L Blood Pressure 122/83 129/83 Blood Pressure [Ri ght Upper Arm] Pulse Oximetry 98 99 100 Oxygen Delivery Me thod Oxygen Flow Rate 01/05/24 01:02 01/05/24 01:02 01/05/24 01:02 Temperature Pulse Rate 104 H 104 H 104 H Pulse Rate [Pulse Oximeter] Respiratory Rate Blood Pressure 129/83 129/83 129/83 Blood Pressure [Ri ght Upper Arm] Pulse Oximetry 100 100 100 Oxygen Delivery Me thod Oxygen Flow Rate 01/05/24 01:15 Temperature Pulse Rate 102 H Pulse Rate [Pulse Oximeter] Respiratory Rate Blood Pressure Blood Pressure [Ri ght Upper Arm] Pulse Oximetry 99 Oxygen Delivery Me thod Oxygen Flow Rate Course Vital Signs Vital signs: Initial Vital Signs Temperature 97.9 F 01/04/24 22:24 Temperature Source Temporal Artery Scan 01/04/24 22:24 Pulse Rate 105 H 01/04/24 22:24 Blood Pressure 111/75 01/04/24 22:24 Blood Pressure Mean 87 01/04/24 22:24 Blood Pressure Position Sitting 01/04/24 22:24 Pulse Oximetry 99 01/04/24 22:24 Oxygen Delivery Method Room Air 01/04/24 22:24 Vital Signs Temperature 97.9 F 01/04/24 22:24 Pulse Rate 105 H 01/04/24 22:24 Blood Pressure 111/75 01/04/24 22:24 Pulse Oximetry 99 01/04/24 22:24 Oxygen Delivery Method Room Air 01/04/24 22:24 Temperature 97.9 F 01/04/24 22:24 Pulse Rate 102 H 01/05/24 01:15 Respiratory Rate 10 L 01/05/24 01:00 Blood Pressure 129/83 01/05/24 01:02 Pulse Oximetry 99 01/05/24 01:15 Oxygen Delivery Method Nasal Cannula 01/05/24 00:40 Oxygen Flow Rate 2 01/05/24 00:40 Medications Administered Medications: Discontinued Medications Generic Name Dose Route Start Last Admin Trade Name Freq PRN Reason Stop Dose Admin Fentanyl 50 mcg 01/04/24 22:28 01/04/24 22:25 Fentanyl 100 Mcg/2 Ml Inj IVP 01/04/24 22:29 50 mcg ONCE ONE Administration Fentanyl 50 mcg 01/04/24 22:28 01/04/24 23:52 Fentanyl 100 Mcg/2 Ml Inj IVP 50 mcg Q5M PRN Administration Folic Acid 1 mg 01/04/24 23:23 01/05/24 00:15 Folic Acid 5 Mg/Ml Inj IV 01/04/24 23:24 Not Given ONCE ONE Sodium Chloride 1,000 mls @ 1,000 mls/hr 01/04/24 22:30 01/04/24 23:18 0.9 % Sodium Chloride 1000 Ml IV 01/04/24 23:29 Infused .Q1H ISH Infusion Thiamine HCl 100 mg/ Sodium 101 mls @ 101 mls/hr 01/04/24 23:23 01/05/24 00:15 Chloride IVPB 01/04/24 23:24 Not Given ONCE ONE Sodium Chloride 1,000 mls @ 1,000 mls/hr 01/04/24 23:23 01/05/24 01:05 0.9 % Sodium Chloride 1000 Ml IV 01/05/24 00:22 Infused .Q1H ISH Infusion Folic Acid 1 mg/ Multivitamins 1,011.2 mls @ 999 mls/hr 01/04/24 23:37 01/05/24 01:19 10 ml/ Thiamine HCl 100 mg/ IV 01/05/24 00:37 Infused Sodium Chloride .Q1H1M ISH Infusion Ketorolac Tromethamine 15 mg 01/04/24 22:28 01/04/24 22:42 Ketorolac 15 Mg/Ml Inj IVP 01/04/24 22:29 15 mg ONCE ONE Administration Ondansetron HCl 4 mg 01/04/24 23:23 01/04/24 23:52 Ondansetron 2 Mg/Ml Inj IVP 01/04/24 23:24 4 mg ONCE ONE Administration Medical Decision Making MDM Narrative Medical decision making narrative: 38-year-old male brought to the ER today by EMS for evaluation of left arm/elbow injury with obvious deformity in the setting of a ground level fall and alcohol intoxication. 1. Alcohol: Patient does have a long history of alcoholism. He had been through a 2 month residential alcohol treatment program and had been sober for couple of months. He had a very to starting conversation with his ex about his child recently and that led him to relapse. He has been drinking heavily for the past few days. He does endorse that he was drinking a 1 L bottle of alcohol today. He presents with slurred speech and behaviors consistent with alcohol into xication. His fall actually occurred while he was on the way to the liquor store to get another bottle (but they would not cell to him because he was showing signs of intoxication). Here in the ER he was observed for couple of hours during his workup and is actually showing signs of progressing clinical sobriety indicating these metabolized the alcohol he had been consuming. At this point he is not displaying signs of alcohol withdrawal. Had discussed with the patient. At this point he is not interested in inpatient alcohol treatment. He does not want to go to detox. He does not want stay in the hospital. Discussed with his girlfriend, Tonya, over the phone. Ultimately she agrees to take him home and will help him get through withdrawal. She knows is typical pattern. Will provide him with Ativan that he can use as needed and Zofran for nausea and vomiting. Carefully reviewed sedation precautions with the benzodiazepines and alcohol. Laboratory workup is generally reassuring. Bilirubin and LFTs are all almost essentially normal. AST is 38. Potassium normal. He does have low bicarb consistent with dehydration. Elevated anion gap consistent with alcohol/ethanol. 2. Trauma: He does have evidence for a left elbow deformity. Differential would include distal humerus fracture, elbow dislocation, complex forearm fracture. X-rays confirm a posterior elbow dislocation associated with a fracture of the coronoid process of the ulna. Fortunately he is neurovascularly intact. Discussed with orthopedic PA. She would agree of plan to attempt closed reduction here in the ER. If unsuccessful we could admit the patient and Orthopedics could take him to the OR for reduction in the morning. He underwent procedural sedation with CASTING MOLDER. I was able to successfully reduce the elbow dislocation. He is placed into a posterior long-arm splint. Post reduction he is neurovascularly intact. He will need outpatient follow-up with Orthopedics. He is provided with orthopedic clinic contact information. Prior to sedation and reduction we did do evaluation for other traumatic injuries. He does have some superficial abrasions on the back of his occiput. No suturable laceration. Head CT is obtained because of his head injury and intoxication and fortunately is negative for any intracranial bleed. We were not able to clinically clear his C-spine due to alcohol intoxication and distracting injury. C-spine CT is fortunately normal. He also had some tenderness of his left lower rib cage in left abdomen. CT chest abdomen pelvis shows no acute traumatic injury. He is hemodynamically stable. Hemoglobin is normal Plan will be to discharge home with his long-term girlfriend, Tonya. He will stop drinking. He certainly is at risk for developing alcohol withdrawal. Provided with prescription for Ativan to for that. Also Zofran in case he develops nausea and vomiting. Prescription for Lecompton provided for his elbow dislocation pain. Precautions not to mix benzos and opiates together or mix either of these medications with alcohol. Also reviewed sedation and addiction precautions. Lab Data Labs: Lab Results 01/04/24 Range/Units 22:45 WBC 10.19 (4.50-11.00) K/uL RBC 5.38 (4.30-5.90) m/uL Hgb 16.3 (13.5-17.5) gm/dL Hct 48.1 (37.0-53.0) % MCV 89 (80-100) fL MCH 30 (26-34) pg MCHC 34 (32-36) gm/dL RDW Coeff of Amanda 12.6 (11.5-15.5) % Plt Count 231 (140-440) K/uL Neut % (Auto) 64.0 (42.0-72.0) % Lymph % (Auto) 28.6 (20-44) % Otoe % (Auto) 4.3 (0.0-11.0) % Eos % (Auto) 2.2 (0.0-7.0) % Baso % (Auto) 0.3 (0.0-3.0) % Neut # (Auto) 6.53 (1.7-7.0) K/uL Lymph # (Auto) 2.91 H (0.90-2.90) K/uL Otoe # (Auto) 0.40 (0.00-0.90) K/UL Eos # (Auto) 0.22 (0.00-0.50) K/uL Baso # (Auto) 0.03 (0.00-0.30) K/uL Abs Immat Gran (auto) 0.06 (0.00-0.30) K/uL Imm/Tot Granulo (auto) 0.6 % INR 0.90 L (0.91-1.10) Sodium 146 (135-149) mmol/L Potassium 4.2 (3.6-5.1) mmol/L Chloride 111 (96-114) mmol/L Carbon Dioxide 15 L (20-32) mmol/L Anion Gap 20 H (7-15) mEq/L BUN 24 (5-24) mg/dL Creatinine 1.0 (0.5-1.5) mg/dL Estimated Creat Clear 102.40 Estimated GFR 98 ml/min Glucose 98 (60-115) mg/dL Calcium 8.8 (8.4-10.6) mg/dL Total Bilirubin 0.7 (0.1-1.5) mg/dL AST 38 H (12-35) U/L ALT 31 (4-50) U/L Alkaline Phosphatase 85 (40-150) U/L Total Protein 6.7 (6.0-8.3) g/dL Albumin 4.3 (3.3-5.0) g/dL Ethyl Alcohol 0.27 H (0.01-0.03) % Imaging Data xr left elbow: Attestation: I have reviewed the pertinent imaging results. My impression: Posterior elbow dislocation with fracture fragment near the joint space, likely a fracture of the coracoid process of the ulna Radiologist's impression: IMPRESSION: Elbow dislocation with fracture fragment along the anterior joint space. CT scan - head: Attestation: I have reviewed the pertinent imaging results. Radiologist's impression: Impression: No acute abnormality appreciated. CT C spine: Attestation: I have reviewed the pertinent imaging results. Radiologist's impression: Impression: Allowing for motion degradation, no acute abnormality is appreciated. CT Chest/Ab/Pelvis: Attestation: I have reviewed the pertinent imaging results. Radiologist's impression: Impression: 1. No acute abnormality appreciated. 2. Right testicle is within the inguinal canal. Correlation for transient exaggerated cremasteric reflex versus cryptorchidism recommended. ECG Data Attestation: I personally reviewed and interpreted this ECG as follows: Interpretation: Sinus tachycardia. Rate 106 MS 150 QRS axis normal axis. No pathologic Q-waves. ST segment/T wave: No ST segment elevation or depression. QTc: 472 Discharge Plan Discharge Clinical Impression: Alcohol intoxication in active alcoholic, Dislocated elbow, Fracture, ulna Patient Disposition: Home w/ Parent or Adult Condition: Stable Instructions: Elbow Dislocation (ED), Alcohol Intoxication (DC), Abuse of Alcohol (DC) Additional Instructions: For your elbow dislocation: Keep your splint on at all times. Keep the splint clean and dry. Keep your elbow elevated on a pillow while in bed or worse sling when you are up and around Use an ice pack for 20 minutes every 3-4 hours to help reduce swelling. Use prescription pain killers if needed for pain. If you develop numbness in your hand or fingers, paleness or pallor of your fingers, or worsening pain, see your orthopedist or return to the ER immediately to be rechecked. Use Tylenol or ibuprofen if needed for pain. For uncontrolled pain use the prescription pain killer Lecompton. Use caution with Lecompton. It causes sedation and drowsiness. Do not mix it with alcohol or with Ativan. Call the [facility] [phone] tomorrow morning to arrange an ER follow-up appointment For your alcohol intoxication: Please stop drinking. It would be best for you to go back to treatment so that you can achieve and maintain long-term sobriety For alcohol withdrawal, use Ativan 1 tablet every 8 hours as needed. Use caution with Ativan because it causes drowsiness. Do not mix Ativan with alcohol or with your pain killer. Remember, return to the ER right away if you have any concerns or problems. Prescriptions: No Action escitalopram oxalate 20 mg tablet 20 mg PO QDAY Qty: 90 1RF hydroxyzine HCl 50 mg tablet 50 mg PO BID PRN (Reason: anxiety) Qty: 60 0RF trazodone 100 mg tablet 100 mg PO QHS PRN (Reason: insomnia) Qty: 30 0RF naltrexone 50 mg tablet 50 mg PO DAILY Qty: 30 0RF Follow Up/Referrals: Shahid Mcdonnell MD [Primary Care Provider] - Stand Alone Forms: [facility] Info Instructions Procedures Orthopedic Joint Reduction left elbow posterior dislocation and ulna fracture: Written consent by: patient Time Out Performed: Yes Side: left Joint Reduction Location: elbow Manipulation used?: Yes Analgesia: procedural sedation Technique used: direct manipulation Post-reduction neuro vascular exam: intact Post Reduction X-Ray Obtained: Yes Post Reduction X-Ray Results: reduced Splint Applied: Yes Patient Tolerated Procedure: well
[2024-01-04 23:22] LABS: Albumin* 4.3 g/dL (3.3-5.0); Chloride* 111 mmol/L (96-114)
[2024-01-04 23:23] LABS: Potassium* 4.2 mmol/L (3.6-5.1); Sodium* 146 mmol/L (135-149)
--- NOTE | 2024-01-04 23:24 | PC.NURSE ---
Pt to radiology via dion. Pt awake and tech explaining everything
[2024-01-04 23:25] LABS: Alkaline Phosphatase* 85 U/L (40-150); Anion Gap 20 mEq/L (7-15); Aspartate Amino Transferase* 38 U/L (12-35); Bilirubin Total* 0.7 mg/dL (0.1-1.5); Blood Urea Nitrogen* 24 mg/dL (5-24); Carbon Dioxide* 15 mmol/L (20-32); Estimated Glomerular Filt Rate 98 ml/min; Glucose* 98 mg/dL (60-115); Prothrombin Time 12.7 Seconds; Total Protein* 6.7 g/dL (6.0-8.3)
[2024-01-04 23:26] LABS: Alanine Aminotransferase* 31 U/L (4-50); Calcium* 8.8 mg/dL (8.4-10.6); Ethanol* 0.27 % (0.01-0.03)
[2024-01-04] MEDS: ONDANSETRON 2 MG/ML inj 4 MG IVP (23:52)
[2024-01-05] VITALS (20 sets, daily range): BP systolic 115–140; BP diastolic 68–93; PULSE 102–114; RESP 4–20; O2SAT 94–100
--- NOTE | 2024-01-05 00:26 | PC.NURSE ---
Nursing- MATERIAL HANDLING CREW SUPERVISOR at BS. room prepped with CO2 monitor, airway cart and ambu bag. Consent obtained by MATERIAL HANDLING CREW SUPERVISOR
--- NOTE | 2024-01-05 00:42 | XR_ITS ---
Patient: NIGEL FLORES Facility:?[facility] Patient ID:?[id number] Site Patient ID:?[id number]. Site :?[id number] Study:?XRay-Extremity Left ELBOW-01/05/2024 12:55:19 AM Ordering Physician:CODY Final Report: INDICATION: Postreduction. TECHNIQUE: Left elbow 1 view. COMPARISON: None. FINDINGS/IMPRESSION: Anatomic alignment of the elbow joint status post reduction. Known fracture fragment not well visualized on this single view. Overlying cast/splint material. Dictated by John Moody MD @ 01/05/2024 1:04:09 AM Signed by:?John Moody MD @01/05/2024 1:04:09 AM (Electronic Signature)
--- NOTE | 2024-01-05 00:58 | W.ANESCHARGE ---
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
== END 2024-01-05 02:01 | disposition home or self-care (01) ==
PROVIDERS: Emergency Provider Emergency Medicine; PCP Family Medicine
DX: S52.045A Nondisplaced fracture of coronoid process of left ulna, initial encounter for closed fracture (principal); F10.129 Alcohol abuse with intoxication, unspecified; W19.XXXA Unspecified fall, initial encounter
CPT/HCPCS: 24605; 01730; 36415; 70450; 71260; 72125; 73070; 74177; 80053; 82077; 85025; 85610; 93005; 94761; 96365; 96375; 99140; 99285; J1885; J2405; J2704; J3010; J3411; J3490; J7030; Q9967

== ENCOUNTER 2024-05-07 09:28 | Outpatient (CLI) | payer MEDICAID, SELFPAY ==
--- OUTSIDE RECORDS SUMMARY | 2024-05-10 16:54 | XMS_ITS | Referral Summary ---
Author Organization [facility] Address [address] [place] [address] Care Team Providers Care Prepper Name Role Phone No Ref-Primary, Physician Primary Care Provider Allergies Active Allergy Reactions Criticality Noted Date Comments Penicillins 06/29/2014 Medications Medication Sig Dispensed Refills Start Date End Date Status dextromethorphan 15 MG/5ML syrup Take 10 mLs by mouth 4 times daily as needed for cough Active diazepam (VALIUM) 5 MG tablet Take 1 tablet (5 mg) by mouth every 6 hours as needed for other 4 tablet 12/20/2017 Active Active Problems Problem Noted Date Diagnosed Date Major depressive disorder, recurrent episode, mo derate 08/13/2019 Anxiety 08/13/2019 Opioid abuse 08/13/2019 Mood disorder (H24) 08/13/2019 Severe alcohol use disorder 10/24/2018 Hyponatremia 10/24/2018 Alcohol intoxication with mo derate or severe use disorder, uncomplicated 10/24/2018 Hypokalemia Resolved Problems Problem Noted Date Diagnosed Date Resolved Date Alcohol intoxication (H24) 10/24/2018 1 Immunizations Name Administration Dates Next Due Hepatitis B, Peds 04/09/2003,08/28/1997,07/09/19 97 Influenza (IIV3) PF 09/02/2010 Influenza (intradermal) 11/19/2012 Influenza Vaccine >6 months,quad, PF 08/15/2019, 02/07/2018 Meningococcal (Menomune??) 04/09/2003 TDAP (Adacel,Boostrix) 11/19/2012 Td (Adult), Adsorbed 06/19/1997 Social History Tobacco Use Types Packs/Day Years Used Date Smoking Tobacco: Every Day Cigarettes 0.5 10 Smokeless Tobacco: Never Alcohol Use Standard Drinks/Week Comments Not Currently 0 (1 standard drink = 0.6 oz pure alcohol) Alcoholic Drinks/day: chronic alcohol problems PHQ-2 Answer Date Recorded PHQ-2 Score 2 08/22/2019 Adolescent Education Answer Date Record ed Getting School Help Needed Not on file 08/09 Sex and Gender Information Value Date Recorded Sex Assigned at Not on file Gender Identity Not on file Sexual Orientation Not on file Last Filed Vital Signs Vital Sign Reading Time Taken Comments Blood Pressure 107/75 10/27/2023 5:51 PM SUPERVISOR [employer]ITTING [employer] Pulse 105 10/27/2023 5:51 PM [employer] Temperature 37.2 ??C (99 ??F) 10/27/2023 5:51 PM [employer] Respiratory Rate 20 10/27/2023 5:51 PM [employer] Oxygen Saturation 96% 10/27/2023 5:51 PM SUPER[employer] Inhaled Oxygen Concentration - - Weight 74.8 kg (165 lb) 10/27/2023 5:47 PM [employer] Height 177.8 cm (5' 10) 10/27/2023 5:47 PM SUPER[employer] Body Mass Index 23.68 10/27/2023 5:47 PM SU[employer] Plan of Treatment Not on file Procedures Procedure Name Priority Date/Time Associated Diagnosis Comments BASIC METABOLIC PANEL STAT 10/27/2023 8:32 PM SUPERVISOR [employer]PING ACUTE HEPATITIS PANEL Routine 10/25/2018 12:55 PM SUPERVIS[employer] from Last 3 Months or Most Recently Relevant to Health Maintenance Results * Basic metabolic panel (10/27/2023 8:32 PM SUPERVISOR [employer]) Pathologist [facility] Sodium 136 135 - 145 mmol/L 10/27/2023 9:28 PM SUPERVISOR [employer]ITTING [employer] SHIPPING [facility] Comment:Reference intervals for this test were updated on 07/18/2023 to more accurately reflect our healthy population. There may be differences in the flagging of prior results with similar values performed with this method. Interpretation of those prior results can be made in the context of the updated reference intervals. Potassium 4.6 3.4 - 5.3 mmol/L 10/27/2023 9:28 PM SUPERVIS[employer] [facility] Chloride 98 98 - 107 mmol/L 10/27/2023 9:28 PM [employer]PER[employer] [facility] Carbon Dioxide (CO2) 28 22 - 29 mmol/L 10/27/2023 9:28 PM [facility] Anion Gap 10 7 - 15 mmol/L 10/27/2023 9:28 PM SUPERVISOR [employer]PING [facility] Urea Nitrogen 14.3 6.0 - 20.0 mg/dL 10/27/2023 9:28 PM [facility] Creatinine 0.72 0.67 - 1.17 mg/dL 10/27/2023 9:28 PM [employer] [facility] GFR Estimate >90 >60 mL/min/1. 73m2 10/27/2023 9:28 PM [facility] Calcium 9.9 8.6 - 10.0 mg/dL 10/27/2023 9:28 PM [facility] Glucose 94 70 - 99 mg/dL 10/27/2023 9:28 PM [employer] [facility] Blood BLOOD SPECIMEN / Unknown Venipuncture / Unknown 10/27/2023 8:32 PM [employer] 10/27/2023 8:36 PM [employer] Alicia Diaz MD LAB - BLOOD ORD ERABLES [facility] [phone] * Acute hepatitis panel (10/25/2018 12:55 PM SUPER[employer]) Hepatitis A Antibody IgM Negative Negative 10/26/2018 9:56 AM SUPERVIS[employer]ITTING [employer]PING [facility] Hepatitis B Core Antibody IgM Negative Negative 10/26/2018 9:56 AM [employer]PER[employer]PING [facility] Hepatitis B Surface Antigen Negative Negative 10/26/2018 9:56 AM [employer]PERVIS[employer]PING [facility] Hepatitis C Antibody Negative Negative 10/26/2018 9:56 AM SUPERVIS[employer]ITT[employer] SH[employer]PING [facility] Blood specimen (specimen) STRUCTURE OF RIGHT UPPER LIMB / Unknown Venipuncture / Unknown 10/25/2018 12:55 PM [employer] 10/25/2018 1:02 PM [employer] Jairo Vera MD LAB - BLOOD ORDERABL [facility] [address] [place] [address], [place] [facility] [address] [place] [address] from Last 3 Months or Most Recently Relevant to Health Maintenance Care Teams Prepper Relationship Specialty Start Date End Date No Ref-Primary, Physician PCP - General 06/30/14
--- OUTSIDE RECORDS SUMMARY | 2024-05-10 16:54 | XMS_ITS | Clinical Summary ---
Author Organization [facility] Address [address] [place] [address] Care Team Providers Care Recruiting Consultant Name Role Phone No Ref-Primary, Physician Primary [...] TDAP (Adacel,Boostrix) 11/19/2012 Td (Adult), Adsorbed 06/19/1997 Family History Medical History Relation Comments Alcoholism Maternal Grandfather in MVA ; intoxicated age 29 Alcoholism Sister sober for last 2 years as of 2019 Relation Status Comments Maternal Grandfather Sister Alive Social History Tobacco Use Types Packs/Day Years [...] Comments Blood Pressure 107/75 10/27/2023 5:51 PM CASINO CASHIER MANAGER Pulse 105 10/27/2023 5:51 PM CASINO CASHIER MANAGER Temperature 37.2 ??C (99 ??F) 10/27/2023 5:51 PM CASINO CASHIER MANAGER Respiratory Rate 20 10/27/2023 5:51 PM CASINO CASHIER MANAGER Oxygen Saturation 96% 10/27/2023 5:51 PM CASINO CASHIER MANAGER Inhaled Oxygen Concentration - - Weight 74.8 kg (165 lb) 10/27/2023 5:47 PM CASINO CASHIER MANAGER Height 177.8 cm (5' 10) 10/27/2023 5:47 PM CASINO CASHIER MANAGER Body Mass Index 23.68 10/27/2023 5:47 PM CASINO CASHIER MANAGER Plan of Treatment Health Maintenance Due Date Last Done Comments ADVANCE CARE PLANNING 1984 ANNUAL REVIEW OF HM ORDERS 1984 DEPRESSION ACTION PLAN 1984 YEARLY PREVENTIVE VISIT 1984 HIV SCREENING 1999 PHQ-9 02/20/2020 08/22/2019 COVID-19 Vaccine ( - 2022- season) 2023 Pneumococcal Vaccine: Pediatrics (0 to 5 Years) and At-Risk Patients (6 to 64 Years) (2 of 2 - PCV) 05/11/2024 05/11/2023 INFLUENZA VACCINE (#1) 2024 , 08/15/2019, 02/07/2018, Additional history exists GLUCOSE 10/27/2026 10/27/2023, 01/0 11/2023, 08/12/2019, Additional history exists DTAP/TDAP/TD IMMUNIZATION (4 - Td or Tdap) 01/28/2031 01/28/2021, 11/19/2012, 06/19/1997 MENINGITIS IMMUNIZATION Aged Out 04/09/2003, 04/09 No longer eligible based on patient's age to complete this topic HEPATITIS B IMMUNIZATION Completed 003, 04/09/2003, 08/28/1997, Additional history exists HEPATITIS C SCREENING Completed 10/25/2018 HPV IMMUNIZATION Aged Out No longer e ligible based on patient's age to complete this topic IPV IMMUNIZATION Aged Out No longer e ligible based on patient's age to complete this topic RSV MONOCLONAL ANTIBODY Aged Out No l onger eligible based on patient's age to complete this topic Procedures Procedure Name Priority Date/Time Associated Diagnosis Comments BASIC METABOLIC PANEL STAT 10/27/2023 8:32 PM CASINO CASHIER MANAGER ACUTE HEPATITIS PANEL Routine 10/25/2018 12:55 PM CASINO CASHIER MANAGER from Last 3 Months or Most Recently Relevant to Health Maintenance Results * Basic metabolic panel (10/27/2023 8:32 PM CASINO CASHIER MANAGER) Sodium 136 135 - 145 mmol/L 10/27/2023 9:28 PM CASINO CASHIER MANAGER [facility] Comment:Reference intervals for this test were updated on 07/18/2023 to more accurately reflect our healthy population. There may be differences in the flagging of prior results with similar values performed with this method. Interpretation of those prior results can be made in the context of the updated reference intervals. Potassium 4.6 3.4 - 5.3 mmol/L 10/27/2023 9:28 PM CASINO CASHIER MANAGER [facility] Chloride 98 98 - 107 mmol/L 10/27/2023 9:28 PM CASINO CASHIER MANAGER [facility] Carbon Dioxide (CO2) 28 22 - 29 mmol/L 10/27/2023 9:28 PM CASINO CASHIER MANAGER [facility] Anion Gap 10 7 - 15 mmol/L 10/27/2023 9:28 PM CASINO CASHIER MANAGER [facility] Urea Nitrogen 14.3 6.0 - 20.0 mg/dL 10/27/2023 9:28 PM CASINO CASHIER MANAGER [facility] Creatinine 0.72 0.67 - 1.17 mg/dL 10/27/2023 9:28 PM CASINO CASHIER MANAGER [facility] GFR Estimate >90 >60 mL/min/1. 73m2 10/27/2023 9:28 PM CASINO CASHIER MANAGER [facility] Calcium 9.9 8.6 - 10.0 mg/dL 10/27/2023 9:28 PM CASINO CASHIER MANAGER [facility] Glucose 94 70 - 99 mg/dL 10/27/2023 9:28 PM CASINO CASHIER MANAGER [facility] Blood BLOOD SPECIMEN / Unknown Venipuncture / Unknown 10/27/2023 8:32 PM CASINO CASHIER MANAGER 10/27/2023 8:36 PM CASINO CASHIER MANAGER Alicia Diaz MD LAB - BLOOD ORD ERABLES [facility] [address] [place] [id number], [facility] [phone] * Acute hepatitis panel (10/25/2018 12:55 PM CASINO CASHIER MANAGER) Hepatitis A Antibody IgM Negative Negative 10/26/2018 9:56 AM CASINO CASHIER MANAGER [facility] Hepatitis B Core Antibody IgM Negative Negative 10/26/2018 9:56 AM CASINO CASHIER MANAGER [facility] Hepatitis B Surface Antigen Negative Negative 10/26/2018 9:56 AM CASINO CASHIER MANAGER [facility] Hepatitis C Antibody Negative Negative 10/26/2018 9:56 AM CASINO CASHIER MANAGER [facility] Blood specimen (specimen) STRUCTURE OF RIGHT UPPER LIMB / Unknown Venipuncture / Unknown 10/25/2018 12:55 PM CASINO CASHIER MANAGER 10/25/2018 1:02 PM CASINO CASHIER MANAGER Jairo Vera MD LAB - BLOOD ORDERABL [facility] [address] [place] [address], [facility] [address] [place] [address] from Last 3 Months or Most Recently Relevant to Health Maintenance Care Teams Recruiting Consultant Relationship Specialty Start Date End Date No Ref-Primary, Physician PCP - General 06/30/14
--- OUTSIDE RECORDS SUMMARY | 2024-05-10 16:54 | XMS_ITS | Encounter Summary ---
Author Organization [facility] Address [address] [place] [address] Care Team Providers Care Straight Pin Making Machine Operator Name Role Phone No Primary/Referring, Phy Primary Care Provider Unavailable Encounter Details Date Type Department Care Team (Late st Contact Info) Description 04/02/2017 Consent for Procedure/Treatme nt [facility] CONSENT FOR BLOOD ALCOHOL/DRUG SCREEN Social History Tobacco Use Types Packs/Day Years Used Date Smoking Tobacco: Former Alcohol Use Standard Drinks/Week Comments Yes 0 (1 standard drink = 0.6 oz pure alcohol) bottle of vodik a day, in ED 10/11/19 for ETOH intoxication Sex and Gender Information Value Date Recorded Sex Assigned at Not on file Gender Identity Not on file Sexual Orientation Not on file documented as of this encounter Plan of Treatment Not on file documented as of this encounter Visit Diagnoses Not on filedocumented in this encounter Care Teams Straight Pin Making Machine Operator Relationship Specialty Start Date End Date No Primary/Referring, Nahed PCP - General 08/17/15 documented as of this encounter
--- OUTSIDE RECORDS SUMMARY | 2024-05-10 16:54 | XMS_ITS | Clinical Summary ---
Author Organization [facility] Address [address] [place] [address] Care Team Providers Care Apple Solutions Consultant Name Role Phone No Primary/Referring, Phy Primary Care Provider Unavailable Source Comments You are receiving this document as you are listed as the primary care provider,follow-up provider, or the patient has been referred to you for consultation.This is in compliance with the Medicare andPaul[facility] Hospitalca[facility] EHR Incentive Program,which states Providers who transition their patient to another setting of careor provider of care or refers their patient to another provider of care shouldprovide summary care record for each transition of care or referral. [place] Allergies Active Allergy Reactions Criticality Noted Date Comments Penicillins Hives High 08/22/2015 Medications Medication Sig Dispensed Refills Start Date End Date Status multi-vitamin (MULTIVITAMIN) tablet Take 1 Tab by mouth daily. Active citalopram (CELEXA) 20 MG tabletIndications:De pression Take 1 Tab by mouth daily for 30 days. Indications: Depression 30 Tab 02/12/2018 Active Immunizations Name Administration Dates Next Due Influenza IIV4 (Quadrivalent) 0.5mL (36030) 01/21 Social History Tobacco Use Types Packs/Day Years Used Date Smoking Tobacco: Former Smokeless Tobacco: Never Alcohol Use Standard Drinks/Week Comments Yes 0 (1 standard drink = 0.6 oz pure alcohol) bottle of vodik a day, in ED 10/11/19 for ETOH intoxication Sex and Gender Information Value Date Recorded Sex Assigned at Not on file Gender Identity Not on file Sexual Orientation Not on file Last Filed Vital Signs Vital Sign Reading Time Taken Comments Blood Pressure 144/94 02/22/2018 7:38 PM CDT Pulse 103 02/22/2018 7:38 PM CDT Temperature 37 ??C (98.6 ??F) 02/22/2018 4:41 PM CDT Respiratory Rate 16 02/22/2018 7:38 PM CDT Oxygen Saturation 98% 02/22/2018 7:38 PM CDT Inhaled Oxygen Concentration - - Weight 76.2 kg (168 lb 1.6 oz) 02/10/2018 8:14 P M CDT Height 180.3 cm (5' 11) 02/10/2018 8:14 PM CDT Body Mass Index 23.45 02/10/2018 8:14 PM CDT Plan of Treatment Health Maintenance Due Date Last Done Comments Hep C Screening (Preventive Services) 1984 HIV Screening (Preventive Services) 2000 Adult Preventive Visit 2002 HepB (1) 2003 Cholesterol 2019 DTaP/Tdap/Td (3 - Tdap) 11/19/2022 11/19/19 13, 06/19/1997 COVID-19 Vaccine (1 - 2022-2 4 season) 2023 Influenza (#1) 2024 02/07/2018, 11/19/2012, 09/02/2010 Zoster/Shingles (1 of 2) 2034 MCV4 Aged Out 04/09/2003 No longer eligi ble based on patient's age to complete this topic HPV Vaccine Aged Out No longer eligi ble based on patient's age to complete this topic HepA Aged Out No longer eligi ble based on patient's age to complete this topic Hib Aged Out No longer eligi ble based on patient's age to complete this topic IPV (Polio) Aged Out No longer eligi ble based on patient's age to complete this topic Pneumococcal Aged Out No longer eligi ble based on patient's age to complete this topic Advance Directives * Full Code (Latest Code Status on File) Date Activated Date Inactivated Comments 02/10/2018 8:07 PM 02/11/2018 3:43 PM * Full Code Date Activated Date Inactivated Comments 02/05/2018 8:33 PM 02/08/2018 4:31 PM Care Teams Apple Solutions Consultant Relationship Specialty Start Date End Date No Primary/Referring, Nahed PCP - General 08/17/15
--- OUTSIDE RECORDS SUMMARY | 2024-05-10 16:54 | XMS_ITS | Encounter Summary ---
Author Organization [facility] Address [address] [place] [address] Care Team Providers Care Fabrication Department Supervisor Name Role Phone Self, Referred Primary Care Provider [phone] No Ref-Primary, Physician Primary Care Provider Darwni Valenzuela MD Unavailable [phone] Reason for Visit * Reason Comments Outpatient Therapy Treatment Plan Encounter Details Date Type Department Care Team (Late st Contact Info) Description 05/30/2011 [facility] Extended Documentation [facility] [address] [place] [phone] Bora Manzanares, [facility] XXX RESIGNED XXX [id number] [place], [place] [phone] Social History Tobacco Use Types Packs/Day Years Used Date Smoking Tobacco: Never Assessed Sex and Gender Information Value Date Recorded Sex Assigned at Not on file Gender Identity Not on file Sexual Orientation Not on file documented as of this encounter Plan of Treatment Not on file documented as of this encounter Visit Diagnoses Not on filedocumented in this encounter Care Teams Fabrication Department Supervisor Relationship Specialty Start Date End Date Self, ReferredMD PCP - General Internal Medicine 02/14/11 06/29/14 No Ref-Primary, Physician PCP - General 06/30/14 Darwin Valenzuela MD [facility] [address] [id number] Assigned PCP 04/07/21 08/26/22 documented as of this encounter
--- OUTSIDE RECORDS SUMMARY | 2024-05-10 16:54 | XMS_ITS | Clinical Summary ---
Author Organization [facility] [place], [place] [address] Care Team Providers Care Log Brander Name Role Phone Pcp, No Primary Care Provider Unavailabl e Allergies Active Allergy Reactions Criticality Noted Date Comments Penicillins *Unknown - Childhood Rxn Unknown 04/21/2011 Medications Medication Sig Dispensed Refills Start Date End Date Status escitalopram oxalate (LEXAPRO) 10 mg tabletIndications:Dep ressive disorder Take 1 Tablet (10 mg) by mouth every morning. 30 Tablet 09/01/2022 Active naltrexone (REVIA) 50 mg tabletIndications:Alc ohol use disorder, severe, dependence (HC) Take 1 Tablet (50 mg) by mouth once daily. 30 Tablet 08/31/2022 Active multivitamin,ther and minerals (multivitamin with minerals) tabletIndications:Alc ohol use disorder, severe, dependence (HC) Take 1 Tablet by mouth once daily. 30 Tablet 09/01/2022 Active hydrOXYzine pamoate (VISTARIL) 50 mg capsule Take 50 mg by mouth 2 times daily if needed. 10/03/2022 Active Adderall XR 25 mg Extended-Release capsule Take 25 mg by mouth every morning. 11/10/2022 Active traZODone (DESYREL) 100 mg tablet Take 100 mg by mouth at bedtime if needed (insomnia). Active Active Problems Problem Noted Date Diagnosed Date Alcohol use disorder, severe, dependence 022 Depressive disorder 08/30/2022 Anxiety 08/13/2019 Opioid abuse 08/13/2019 Alcohol intoxication with mo derate or severe use disorder, uncomplicated 10/24/2018 Resolved Problems Problem Noted Date Diagnosed Date Resolved Date Mood disorder 08/13/2019 07/17/2023 Severe alcohol use disorder 10/24/2018 07/17/2023 Social History Tobacco Use Types Packs/Day Years Used Date Smoking Tobacco: Former Cigarettes 0.5 20 1 - 08/21/2022 Smokeless Tobacco: Never Tobacco Cessation:Counseling Given: Not Answered Alcohol Use Standard Drinks/Week Comments Yes 0 (1 standard drink = 0.6 oz pure alcohol) Binge drinker/ liter a day vodka PHQ-2 Answer Date Recorded PHQ-2 TOTAL SCORE 2 08/28/2022 Social Connections Answer Date Recorded Frequency of Communication with Friends and Fami ly Not on file 01/31/2023 Alcohol Use Answer Date Recorded How often do you have a drink containing alcohol ? 4 08/28/2022 How many drinks containing a lcohol do you have on a typical day when you are drinking? 4 08/28/2022 How often do you have five or more drinks on one occasion? 4 08/28/2022 Sex and Gender Information Value Date Recorded Sex Assigned at Not on file Gender Identity Not on file Sexual Orientation Not on file Obstetrics History Last Filed Vital Signs Vital Sign Reading Time Taken Comments Blood Pressure 126/86 07/19/2023 7:59 AM CDT Pulse 76 07/19/2023 7:59 AM CDT Temperature 37 ??C (98.6 ??F) 07/19/2023 7:59 AM CDT Respiratory Rate 16 07/19/2023 7:59 AM CDT Oxygen Saturation 94% 07/19/2023 7:59 AM CDT Inhaled Oxygen Concentration - - Weight 74.8 kg (165 lb) 07/17/2023 11:35 AM CDT Height 172.7 cm (5' 8) 07/17/2023 11:35 AM CDT Body Mass Index 25.09 07/17/2023 11:35 AM CDT Plan of Treatment Health Maintenance Due Date Last Done Comments Pneumococcal series for age 6-64 (1 of 2 - PCV) 1989 Tdap 1995 BMI (ht and wt on same day) for age 18+ 2002 Tetanus booster 2004 Lipids for age 35-44 2019 COVID-19 vaccine series ( season) Depression screening for age 12+ 08/28/2023 08/28/20 22 Influenza for age 9-49 06/23/2024 HIV for age 15-65 Completed 10/07/2021 Hepatitis C screening for age 18-79 Completed 10/07 Procedures Procedure Name Priority Date/Time Associated Diagnosis Comments ANTI HIV 1/2 Routine 10/07/2021 8:20 AM SHUTTLE DRIVER ANTI HCV Routine 10/07/2021 8:20 AM SHUTTLE DRIVER from Last 3 Months or Most Recently Relevant to Health Maintenance Results * ANTI HCV (10/07/2021 8:20 AM SHUTTLE DRIVER) HEPATITIS C ANTIBODY Non-React laine Non-React laine 10/07/2021 5:19 PM SHUTTLE DRIVER [facility] [employer] [facility] Comment:Antibodies to HCV no t detected; does not exclude the possibility of exposure to HCV. Blood BLOOD SPECIMEN / Unknown Venipuncture / Unknown 10/07/2021 8:20 AM SHUTTLE DRIVER 10/07/2021 10:11 AM SHUTTLE DRIVER Kimberli Hernandez NP SEND OUTS [facility] [employer] [facility] [address] [place] [address], * ANTI HIV 1/2 (10/07/2021 8:20 AM SHUTTLE DRIVER) HIV-1/HIV-2 ANTIBODY Non-Reacti ve Non-Reacti ve 10/07/2021 5:22 PM SHUTTLE DRIVER [facility] [employer] [facility] Comment:HIV-1 p24 and HIV-1/ HIV-2 Ab not detected. Blood BLOOD SPECIMEN / Unknown Venipuncture / Unknown 10/07/2021 8:20 AM SHUTTLE DRIVER 10/07/2021 10:11 AM SHUTTLE DRIVER Kimberli Hernandez NP [facility] [address] [place] [address], from Last 3 Months or Most Recently Relevant to Health Maintenance Advance Directives * Full Code (Latest Code Status on File) Date Activated Date Inactivated Comments 07/17/2023 3:20 PM 07/19/2023 2:17 PM Question Answer Comments Code Status Discussion: Other (specify in commen ts): * Full Code Date Activated Date Inactivated Comments 08/29/2022 9:25 AM 09/01/2022 11:12 AM Question Answer Comments Code Status Discussion: Other * Full Code Date Activated Date Inactivated Comments 08/28/2022 9:29 PM 08/29/2022 9:25 AM Question Answer Comments Code Status Discussion: Unable to Assess Preferences, Provider to review later Care Teams Log Brander Relationship Specialty Start Date End Date Pcp, No . PCP - General 03/08/14
== END 2024-05-07 09:29 | disposition home or self-care (01) ==
LOC: NFLDREF 05-10 16:52
PROVIDERS: PCP Family Medicine; Referring Provider Family Medicine; Visit Provider Family Medicine
DX: E78.5 Hyperlipidemia, unspecified (principal); Z13.220 Encounter for screening for lipoid disorders
CPT/HCPCS: 80053; 80061

== ENCOUNTER 2024-12-22 18:35 | Outpatient (CLI) | payer BC, MEDICAID, SELFPAY | END 2024-12-22 18:36 | disposition home or self-care (01) | LOC: AMB 12-23 13:27 | PROVIDERS: PCP Family Medicine; Visit Provider Family Medicine | DX: F10.129 Alcohol abuse with intoxication, unspecified (principal); T74.21XA Adult sexual abuse, confirmed, initial encounter; Y04.8XXA Assault by other bodily force, initial encounter | CPT/HCPCS: A0425; A0427 ==

== ENCOUNTER 2024-12-22 19:07 | Emergency (ER) | payer BC, MEDICAID, SELFPAY ==
[2024-12-22] VITALS (31 sets, daily range): BP systolic 118–153; BP diastolic 81–108; PULSE 109–148; RESP 6–35; TEMP 37.3–38; O2SAT 94–100; BMI 28.7
--- OUTSIDE RECORDS SUMMARY | 2024-12-22 19:10 | XMS_ITS | Encounter Summary ---
Author Organization [facility] Address [address] [place] [address] Care Team Providers Care Pamphlet Distributor Name Role Phone No Primary/Referring, Phreilly Primary Care Provider Unavailable Encounter Details Date [...] Recorded Sex Assigned at Not on file Legal Sex Male 1:50 PM CDT Gender Identity Not on file Sexual Orientation Not on file documented as of this encounter Plan of Treatment Not on file documented as of this encounter Visit Diagnoses Not on filedocumented in this encounter Care Teams Pamphlet Distributor Relationship Specialty Start Date End Date No Primary/ReferringNahed PCP - General 08/17/15 documented as of this encounter
--- OUTSIDE RECORDS SUMMARY | 2024-12-22 19:10 | XMS_ITS | Clinical Summary ---
Author Organization [facility] Address [address] [place] [id number] Care Team Providers Care Childcare Director Name Role Phone Pcp, No Primary Care Provider Unavailabl e Allergies Active Allergy Reactions Criticality Noted Date Comments Penicillins *Unknown - Childhood Rxn Unknown 04/21/2011 Medications * This document contains information received from the source organization and may not represent a complete record from that organization. escitalopram oxalate (LEXAPRO) 10 mg tabletIndicatio ns:Depressive disorder Take 1 Tablet (10 mg) by mouth every morning. 30 Tablet 08/31/2022 12:35 PM RIDING TEACHER 09/01/2022 Active naltrexone (REVIA) 50 mg tabletIndicatio ns:Alcohol use disorder, severe, dependence (HC) Take 1 Tablet (50 mg) by mouth once daily. 30 Tablet 08/31/2022 12:35 PM RIDING TEACHER 08/31/2022 Active multivitamin,th er and minerals (multivitamin with minerals) tabletIndicatio ns:Alcohol use disorder, severe, dependence (HC) Take 1 Tablet by mouth once daily. 30 Tablet 08/31/2022 12:35 PM RIDING TEACHER 09/01/2022 Active hydrOXYzine pamoate (VISTARIL) 50 mg capsule Take 50 mg by mouth 2 times daily if needed. 10/03/2022 Active Adderall XR 25 mg Extended-Releas e capsule Take 25 mg by mouth every morning. 11/10/2022 Active traZODone (DESYREL) 100 mg tablet Take 100 mg by mouth at bedtime if needed (insomnia). 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 Gender Identity Not on file Sexual Orientation Not on file Obstetrics History Last Filed Vital Signs Vital Sign Reading Time Taken Comments Blood Pressure 126/86 07/19/2023 7:59 AM CDT Pulse 76 07/19/2023 7:59 AM CDT Temperature 37 C (98.6 F) 07/19/2023 7:59 AM CDT Respiratory Rate 16 07/19/2023 7:59 AM CDT Oxygen Saturation 94% 07/19/2023 7:59 AM CDT Inhaled Oxygen Concentration - - Weight 74.8 kg (165 lb) 07/17/2023 11:35 AM CDT Height 172.7 cm (5' 8) 07/17/2023 11:35 AM CDT Body Mass Index 25.09 07/17/2023 11:35 AM CDT Plan of Treatment Health Maintenance Due Date Last Done Comments Tdap 1995 BMI (ht and wt on same day) for age 18+ 2002 Pneumococcal series for age 6-49 (1 of 2 - PCV) 2002 Tetanus booster 2004 Lipids for age 35-44 2019 Depression screening for age 12+ 08/28/2023 08/28/20 22 COVID-19 vaccine series (1 - 2023- season) 4 Influenza for age 9-49 06/23/2024 HIV for age 15-65 Completed 10/07/2021 Hepatitis C screening for age 18-79 Completed 10/07 Procedures Procedure Name Priority Date/Time Associated Diagnosis Comments ANTI HIV 1/2 Routine 10/07/2021 8:20 AM RIDING TEACHER ANTI HCV Routine 10/07/2021 8:20 AM RIDING TEACHER from Last 3 Months or Most Recently Relevant to Health Maintenance Results * ANTI HCV (10/07/2021 8:20 AM RIDING TEACHER) HEPATITIS C ANTIBODY Non-React laine Non-React laine 10/07/2021 5:19 PM RIDING TEACHER [facility] Comment:Antibodies to HCV no t detected; does not exclude the possibility of exposure to HCV. Blood BLOOD SPECIMEN / Unknown Venipuncture / Unknown 10/07/2021 8:20 AM RIDING TEACHER 10/07/2021 10:11 AM RIDING TEACHER us [facility] Mary PIN CLE[employer] S[employer] Final Result [facility] [address] [place] [address], * ANTI HIV 1/2 (10/07/2021 8:20 AM RIDING TEACHER) HIV-1/HIV-2 ANTIBODY Non-Reacti ve Non-Reacti ve 10/07/2021 5:22 PM RIDING TEACHER [facility] Comment:HIV-1 p24 and HIV-1/ HIV-2 Ab not detected. Blood BLOOD SPECIMEN / Unknown Venipuncture / Unknown 10/07/2021 8:20 AM RIDING TEACHER 10/07/2021 10:11 AM RIDING TEACHER us Kimberli Brennan Mary [employer] Final Result [facility] [address] [place] [address], from Last 3 Months or Most Recently Relevant to Health Maintenance Insurance [facility] Advance Directives * Full Code (Latest Code [...] Preferences, Provider to review later Care Teams Childcare Director Relationship Specialty Start Date End Date Pcp, No . PCP - General 03/08/14
--- OUTSIDE RECORDS SUMMARY | 2024-12-22 19:10 | XMS_ITS | Encounter Summary ---
Author Organization [facility] Address [address] [place] [id number] Care Team Providers Care Associate Relations Specialist Name Role Phone Self, Referred Primary Care Provider [phone] No Ref-Primary, Physician Primary Care Provider Darwin Valenzuela MD Unavailable [phone] Reason for Visit * Reason Comments Outpatient Therapy Treatment Plan Encounter Details Date Type Department Care Team (Late st Contact Info) Description 05/30/2011 [facility] Extended Documentation [facility] [address] [place] [address] Bora Manzanares, [facility] XXX RESIGNED XXX [address] [place], [place] [id number] Social History Tobacco Use Types Packs/Day Years Used Date Smoking Tobacco: Never Assessed Sex and Gender Information Value Date Recorded Sex Assigned at Not on file Legal Sex Male 5:02 AM BELLPERSON Gender Identity Not on file Sexual Orientation Not on file documented as of this encounter Plan of Treatment Not on file documented as of this encounter Visit Diagnoses Not on filedocumented in this encounter Care Teams Associate Relations Specialist Relationship Specialty Start Date End Date Juan J Willoughby MD PCP - General Internal Medicine 02/14/11 06/29/14 No Ref-Primary, Physician PCP - General 06/30/14 Darwin Valenzuela MD [facility] [address] [place] [address] Assigned PCP 04/07/21 08/26/22 documented as of this encounter
--- OUTSIDE RECORDS SUMMARY | 2024-12-22 19:10 | XMS_ITS | Clinical Summary ---
Author Organization [facility] Address [address] [place] [address] Care Team Providers Care Stock Handler Name Role Phone No Primary/Referring, Phy Primary Care Provider Unavailable Source Comments You are receiving this document as you are listed as the primary care provider,follow-up provider, or the patient has been referred to you for consultation.This is in compliance with the Medicare and[facility] EHR Incentive Program,which states Providers who transition their patient to another setting of careor provider of care or refers their patient to another provider of care shouldprovide summary care record for each transition of care or referral. [employer] Allergies Active Allergy Reactions Criticality Noted Date Comments Penicillins Hives High 08/22/2015 Medications multi-vitamin (MULTIVITAMIN) tablet Take 1 Tab by mouth daily. Active citalopram (CELEXA) 20 MG tabletIndicatio ns:Depression Take 1 Tab by mouth daily for 30 days. Indications: Depression 30 Tab 8 Active Immunizations Immunization Administration Dates Next Due Influenza IIV4 (Quadrivalent) 0.5mL (41243) 01/21 Social History Tobacco Use Types Packs/Day [...] 103 02/22/2018 7:38 PM CDT Temperature 37 C (98.6 F) 02/22/2018 4:41 PM CDT Respiratory Rate 16 [...] 11/19/19 13, 06/19/1997 COVID-19 Vaccine (1 - 2023-2 5 season) 2024 Influenza (#1) 2024 02/07/2018, 11/19/2012, 09/02/2010 Zoster/Shingles [...] on patient's age to complete this topic Meningococcal B Aged Out No longer el igible based on patient's age to complete this topic Pneumococcal Aged Out No longer eligi ble based on patient's age to complete this topic Insurance [employer] [place] [employer] ADULT DENTAL Advance Directives * Full Code (Latest Code Status on File) Date Activated Date Inactivated Comments 02/10/2018 8:07 PM 02/11/2018 3:43 PM * Full Code Date Activated Date Inactivated Comments 02/05/2018 8:33 PM 02/08/2018 4:31 PM Care Teams Stock Handler Relationship Specialty Start Date End Date No Primary/Referring, Phy PCP - General 08/17/15
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
[2024-12-22] MEDS: 0.9 % SODIUM CHLORIDE 1000 ml 1,000 ML IV (20:17)
[2024-12-22 20:25] LABS: Basophils Absolute Auto 0.01 K/uL (0.00-0.30); Basophils Percent Auto 0.1 % (0.0-3.0); Eosinophils Absolute Auto 0.08 K/uL (0.00-0.50); Eosinophils Percent Auto 1.1 % (0.0-7.0); Hematocrit 52.9 % (37.0-53.0); Hemoglobin* 18.4 gm/dL (13.5-17.5); Immature Granulocytes Abs Auto 0.01 K/uL (0.00-0.30); Immature Granulocytes Pct Auto 0.1 %; Lymphocytes Absolute Auto 2.06 K/uL (0.90-2.90); Lymphocytes Percent Auto 27.2 % (20-44); Mean Corpuscular HGB Conc 35 gm/dL (32-36); Mean Corpuscular Hemoglobin 30 pg (26-34); Mean Corpuscular Volume 86 fL (80-100); Monocytes Percent Auto 6.7 % (0.0-11.0); Neutrophils Percent Auto 64.8 % (42.0-72.0); Platelet Count* 217 K/uL (140-440); RDW Coefficient of Variation % 11.8 % (11.5-15.5); Red Blood Count 6.13 m/uL (4.30-5.90); White Blood Count* 7.57 K/uL (4.50-11.00)
[2024-12-22 20:31] LABS: Slide Review Reflex No
[2024-12-22 20:45] LABS: Chloride* 102 mmol/L (96-114); Potassium* 3.9 mmol/L (3.6-5.1); Sodium* 145 mmol/L (135-149)
[2024-12-22 20:48] LABS: Anion Gap 17 mEq/L (7-15); Blood Urea Nitrogen* 20 mg/dL (5-24); Calcium* 8.5 mg/dL (8.4-10.6); Carbon Dioxide* 26 mmol/L (20-32); Creatinine* 1.2 mg/dL (0.5-1.5); Est. Creatinine Clearance* 84.49; Estimated Glomerular Filt Rate 78 ml/min; Glucose* 139 mg/dL (60-115)
--- OUTSIDE RECORDS SUMMARY | 2024-12-22 21:46 | XMS_ITS | Clinical Summary ---
Author Organization [place] Address [address] [place] [address] Care Team Providers Care Huller Operator Name Role Phone No Ref-Primary, Physician Primary Care Provider Allergies Active Allergy Reactions Criticality Noted Date Comments Penicillins 06/29/2014 Medications dextromethorphan 15 MG/5ML syrup Take 10 mLs by mouth 4 times daily as needed for cough Active diazepam (VALIUM) 5 MG tablet Take 1 tablet (5 mg) by mouth every 6 hours as needed for other 4 tablet 12/20/2017 Active Active Problems Problem Noted Date Diagnosed Date Major depressive disorder, recurrent episode, mo derate 08/13/2019 Anxiety 08/13/2019 Opioid abuse 08/13/2019 Mood disorder 08/13/2019 Severe alcohol use disorder 10/24/2018 Hyponatremia 10/24/2018 Alcohol intoxication with mo derate or severe use disorder, uncomplicated 10/24/2018 Hypokalemia Resolved Problems Problem Noted Date Diagnosed Date Resolved Date Alcohol intoxication 10/24/2018 019 Immunizations Name Administration Dates Next Due Hepatitis B, Peds 04/09/2003,08/28/1997,07/09/19 97 Influenza (IIV3) PF 09/02/2010 Influenza (intradermal) 11/19/2012 Influenza Vaccine >6 months,quad, PF 08/15/2019, 02/07/2018 Meningococcal (Menomune ) 04/09/2003 TDAP (Adacel,Boostrix) 11/19/2012 Td (Adult), Adsorbed [...] on file Legal Sex Male 5:02 AM ORTHODONTIC TREATMENT COORDINATOR Gender Identity Not on file Sexual Orientation Not on file Last Filed Vital Signs Vital Sign Reading Time Taken Comments Blood Pressure 107/75 10/27/2023 5:51 PM ORTHODONTIC TREATMENT COORDINATOR Pulse 105 10/27/2023 5:51 PM ORTHODONTIC TREATMENT COORDINATOR Temperature 37.2 C (99 F) 10/27/2023 5:51 PM ORTHODONTIC TREATMENT COORDINATOR Respiratory Rate 20 10/27/2023 5:51 PM ORTHODONTIC TREATMENT COORDINATOR Oxygen Saturation 96% 10/27/2023 5:51 PM ORTHODONTIC TREATMENT COORDINATOR Inhaled Oxygen Concentration - - Weight 74.8 kg (165 lb) 10/27/2023 5:47 PM ORTHODONTIC TREATMENT COORDINATOR Height 177.8 cm (5' 10) 10/27/2023 5:47 PM ORTHODONTIC TREATMENT COORDINATOR Body Mass Index 23.68 10/27/2023 5:47 PM ORTHODONTIC TREATMENT COORDINATOR Plan of Treatment Health Maintenance Due Date Last Done Comments ADVANCE CARE PLANNING 1984 ANNUAL REVIEW OF HM ORDERS 1984 DEPRESSION ACTION PLAN 1984 YEARLY PREVENTIVE VISIT 1987 HIV SCREENING 1999 PHQ-9 02/20/2020 08/22/2019 Pneumococcal Vaccine: Pediatrics (0 to 5 Years) and At-Risk Patients (6 to 49 Years) (2 of 2 - PCV) 05/11/2024 05/11/2023 COVID-19 Vaccine (1 - season) 2024 INFLUENZA VACCINE (#1) 2024 , 08/15/2019, 02/07/2018, Additional history exists LIPID 2024 GLUCOSE 10/27/2026 10/27/2023, 11/2023, 08/12/2019, Additional history exists DTAP/TDAP/TD IMMUNIZATION (4 - Td or Tdap) 01/28/2031 01/28/2021, 11/19/2012, 06/19/1997 ZOSTER IMMUNIZATION (1 of 2) 2034 MENINGITIS IMMUNIZATION Aged Out 04/09/2003, 04/09 No longer eligible based on patient's age to complete this topic HEPATITIS B IMMUNIZATION Completed 003, 04/09/2003, 08/28/1997, Additional history exists HEPATITIS C SCREENING Completed 10/25/2018 HPV IMMUNIZATION Aged Out No longer e ligible based on patient's age to complete this topic Procedures Procedure Name Priority Date/Time Associated Diagnosis Comments BASIC METABOLIC PANEL STAT 10/27/2023 8:32 PM ORTHODONTIC TREATMENT COORDINATOR ACUTE HEPATITIS PANEL Routine 10/25/2018 12:55 PM ORTHODONTIC TREATMENT COORDINATOR from Last 3 Months or Most Recently Relevant to Health Maintenance Results * Basic metabolic panel (10/27/2023 8:32 PM ORTHODONTIC TREATMENT COORDINATOR) Sodium 136 135 - 145 mmol/L 10/27/2023 9:28 PM ORTHODONTIC TREATMENT COORDINATOR [facility] Comment:Reference intervals for this test were updated on 07/18/2023 to more accurately reflect our healthy population. There may be differences in the flagging of prior results with similar values performed with this method. Interpretation of those prior results can be made in the context of the updated reference intervals. Potassium 4.6 3.4 - 5.3 mmol/L 10/27/2023 9:28 PM ORTHODONTIC TREATMENT COORDINATOR [facility] Chloride 98 98 - 107 mmol/L 10/27/2023 9:28 PM ORTHODONTIC TREATMENT COORDINATOR [facility] Carbon Dioxide (CO2) 28 22 - 29 mmol/L 10/27/2023 9:28 PM ORTHODONTIC TREATMENT COORDINATOR [facility] Anion Gap 10 7 - 15 mmol/L 10/27/2023 9:28 PM ORTHODONTIC TREATMENT COORDINATOR [facility] Urea Nitrogen 14.3 6.0 - 20.0 mg/dL 10/27/2023 9:28 PM ORTHODONTIC TREATMENT COORDINATOR [facility] Creatinine 0.72 0.67 - 1.17 mg/dL 10/27/2023 9:28 PM ORTHODONTIC TREATMENT COORDINATOR [facility] GFR Estimate >90 >60 mL/min/1. 73m2 10/27/2023 9:28 PM ORTHODONTIC TREATMENT COORDINATOR [facility] Calcium 9.9 8.6 - 10.0 mg/dL 10/27/2023 9:28 PM ORTHODONTIC TREATMENT COORDINATOR [facility] Glucose 94 70 - 99 mg/dL 10/27/2023 9:28 PM ORTHODONTIC TREATMENT COORDINATOR [facility] Blood BLOOD SPECIMEN / Unknown Venipuncture / Unknown 10/27/2023 8:32 PM ORTHODONTIC TREATMENT COORDINATOR 10/27/2023 8:36 PM ORTHODONTIC TREATMENT COORDINATOR Alicia Diaz MD LAB - BLOOD ORDERABLES Final Result Performing Organization Address City/[facility] Co de Phone Number N LABORATORY [facility] [address] [place], [place] [address] [phone] * Acute hepatitis panel (10/25/2018 12:55 PM ORTHODONTIC TREATMENT COORDINATOR) Hepatitis A Antibody IgM Negative Negative 10/26/2018 9:56 AM ORTHODONTIC TREATMENT COORDINATOR [facility] Hepatitis B Core Antibody IgM Negative Negative 10/26/2018 9:56 AM ORTHODONTIC TREATMENT COORDINATOR [facility] Hepatitis B Surface Antigen Negative Negative 10/26/2018 9:56 AM ORTHODONTIC TREATMENT COORDINATOR [facility] Hepatitis C Antibody Negative Negative 10/26/2018 9:56 AM ORTHODONTIC TREATMENT COORDINATOR [facility] Blood specimen (specimen) STRUCTURE OF RIGHT UPPER LIMB / Unknown Venipuncture / Unknown 10/25/2018 12:55 PM ORTHODONTIC TREATMENT COORDINATOR 10/25/2018 1:02 PM ORTHODONTIC TREATMENT COORDINATOR Jairo Vera MD LAB - BLOOD ORDERABLES Final Result Performing Organization Address City/[facility] Co de Phone Number [facility] [address] [place] [address], [facility] [address] [place] [address] from Last 3 Months or Most Recently Relevant to Health Maintenance Insurance [facility] NONE (Work) [id number] [place] [id number] Care Teams Huller Operator Relationship Specialty Start Date End Date No Ref-Primary, Physician PCP - General 06/30/14
--- OUTSIDE RECORDS SUMMARY | 2024-12-22 21:46 | XMS_ITS | Encounter Summary ---
Author Organization [place] Address [address] [place] [address] Care Team Providers Care Claims Associate Name Role Phone Self, Referred Primary Care Provider No Ref-Primary, Physician Primary Care Provider Darwin Valenzuela MD Unavailable [phone] Reason for Visit * Reason Comments Outpatient Therapy Treatment Plan Encounter Details Date Type Department Care Team (Late st Contact Info) Description 05/30/2011 [facility] Extended Documentation [facility] [address] [place] [address] Bora Manzanares, [facility] XXX RESIGNED XXX [id number] [place], [place] [id number] Social History Tobacco Use Types Packs/Day Years Used Date Smoking Tobacco: Never Assessed Sex and Gender Information Value Date Recorded Sex Assigned at Not on file Legal Sex Male 5:02 AM CLINICAL ACADEMIC ALLERGIST Gender Identity Not on file Sexual Orientation Not on file documented as of this encounter Plan of Treatment Not on file documented as of this encounter Visit Diagnoses Not on filedocumented in this encounter Care Teams Claims Associate Relationship Specialty Start Date End Date Juan J Willoughby MD PCP - General Internal Medicine 02/14/11 06/29/14 No Ref-Primary, Physician PCP - General 06/30/14 Darwin Valenzuela MD [facility] [address] [place] [address] Assigned PCP 04/07/21 08/26/22 documented as of this encounter
--- OUTSIDE RECORDS SUMMARY | 2024-12-22 21:46 | XMS_ITS | Encounter Summary ---
Author Organization [facility] Address [address] [place] [address] Care Team Providers Care Iron Pellet Tester Name Role Phone No Primary/Referring, Phreilly Primary [...] on filedocumented in this encounter Care Teams Iron Pellet Tester Relationship Specialty Start Date End Date No Primary/ReferringNahed PCP - General 08/17/15 documented as of this encounter
--- OUTSIDE RECORDS SUMMARY | 2024-12-22 21:46 | XMS_ITS | Clinical Summary ---
Author Organization [facility] Address [address] [place] [address] Care Team Providers Care Trucking Contractor Name Role Phone No Primary/Referring, Phy Primary Care Provider Unavailable Source Comments You are receiving this document as you are listed as the primary care provider,follow-up provider, or the patient has been referred to you for consultation.This is in compliance with the Medicare and[facility] EHR Incentive Program,which states Providers who transition their patient to another setting of careor provider of care or refers their patient to another provider of care shouldprovide summary care record for each transition of care or referral. [facility] Allergies Active Allergy Reactions Criticality Noted Date Comments Penicillins Hives High 08/22/2015 Medications multi-vitamin (MULTIVITAMIN) tablet Take 1 Tab by mouth daily. Active citalopram (CELEXA) 20 MG tabletIndicatio ns:Depression Take 1 Tab by mouth daily for 30 days. Indications: Depression 30 Tab 8 Active Immunizations Immunization Administration Dates Next Due Influenza IIV4 (Quadrivalent) 0.5mL (13626) 01/21 Social History Tobacco Use Types Packs/Day [...] 8:33 PM 02/08/2018 4:31 PM Care Teams Trucking Contractor Relationship Specialty Start Date End Date No Primary/Referring, Phy PCP - General 08/17/15
--- OUTSIDE RECORDS SUMMARY | 2024-12-22 21:46 | XMS_ITS | Clinical Summary ---
Author Organization [facility] Address [address] [place] [address] Care Team Providers Care Wet Mix Operator Name Role Phone Pcp, No Primary Care [...] every morning. 30 Tablet 08/31/2022 12:35 PM PUBLIC HEALTH AIDE 09/01/2022 Active naltrexone (REVIA) 50 mg tabletIndicatio ns:Alcohol use disorder, severe, dependence (HC) Take 1 Tablet (50 mg) by mouth once daily. 30 Tablet 08/31/2022 12:35 PM PUBLIC HEALTH AIDE 08/31/2022 Active multivitamin,th er and minerals (multivitamin with minerals) tabletIndicatio ns:Alcohol use disorder, severe, dependence (HC) Take 1 Tablet by mouth once daily. 30 Tablet 08/31/2022 12:35 PM PUBLIC HEALTH AIDE 09/01/2022 Active hydrOXYzine pamoate (VISTARIL) 50 mg [...] on file Legal Sex Male 7:35 AM PUBLIC HEALTH AIDE Gender Identity Not on file Sexual Orientation [...] ANTI HIV 1/2 Routine 10/07/2021 8:20 AM PUBLIC HEALTH AIDE ANTI HCV Routine 10/07/2021 8:20 AM PUBLIC HEALTH AIDE from Last 3 Months or Most Recently Relevant to Health Maintenance Results * ANTI HCV (10/07/2021 8:20 AM PUBLIC HEALTH AIDE) HEPATITIS C ANTIBODY Non-React laine Non-React laine 10/07/2021 5:[address] [facility] Comment:Antibodies to HCV no t detected; does not exclude the possibility of exposure to HCV. Blood BLOOD SPECIMEN / Unknown Venipuncture / Unknown 10/07/2021 8:20 AM PUBLIC HEALTH AIDE 10/07/2021 10:11 AM PUBLIC HEALTH AIDE us [facility] Mary MATERIALS SPECIALIST SEND OUTS Final Result [facility] [address] [place] [address], * ANTI HIV 1/2 (10/07/2021 8:20 AM PUBLIC HEALTH AIDE) HIV-1/HIV-2 ANTIBODY Non-Reacti ve Non-Reacti ve 10/07/2021 5:[address] [facility] Comment:HIV-1 p24 and HIV-1/ HIV-2 Ab not detected. Blood BLOOD SPECIMEN / Unknown Venipuncture / Unknown 10/07/2021 8:20 AM PUBLIC HEALTH AIDE 10/07/2021 10:11 AM PUBLIC HEALTH AIDE us Kimberli Brennan Mary MATERIALS SPECIALIST SEND OUTS Final Result Amanda Huff [facility]BA [facility] [address] [place] [address], from Last 3 Months or Most Recently Relevant to Health Maintenance Insurance [facility] Advance Directives * Full Code (Latest Code [...] Preferences, Provider to review later Care Teams Wet Mix Operator Relationship Specialty Start Date End Date Pcp, No . PCP - General 03/08/14
[2024-12-22] MEDS: LORazepam 2 MG/ML inj 0.5 MG IVP ×2 (21:58→23:34)
[2024-12-22 22:08] LABS: HIV 1/2/P24 Combo Screen* Negative (Negative)
[2024-12-23] VITALS: RESP 17
[2024-12-23 00:12] VITALS: BP 150/100; PULSE 118; RESP 18; TEMP 37.7; O2SAT 96
[2024-12-23] MEDS: cefTRIAXone 500 MG VIAL IM (04:20)
[2024-12-23] MEDS: DOXYCYCLINE HYCLATE 100 MG PO (04:21)
[2024-12-23] MEDS: EMTRICITABINE/TENOFOVIR 200-300MG TABLET 1 TAB PO (04:21)
== END 2024-12-23 04:44 | disposition home or self-care (01) ==
PROVIDERS: Emergency Provider Family Medicine; PCP Family Medicine
DX: T74.21XA Adult sexual abuse, confirmed, initial encounter (principal); F10.129 Alcohol abuse with intoxication, unspecified
CPT/HCPCS: 36415; 74177; 80048; 85025; 86703; 96372; 96374; 96376; 99283; 99284; 99285; A9270; J0696; J2060; J7030; Q9967

== ENCOUNTER 2024-12-27 15:04 | Emergency (ER) | payer BC, MEDICAID, SELFPAY ==
--- OUTSIDE RECORDS SUMMARY | 2024-12-27 15:07 | XMS_ITS | Clinical Summary ---
Author Organization [place] Address [address] [place] [address] Care Team Providers Care Clipman Name Role Phone No Ref-Primary, Physician Primary [...] on file Legal Sex Male 5:02 AM MANAGER RISK MANAGEMENT Gender Identity Not on file Sexual Orientation Not on file Last Filed Vital Signs Vital Sign Reading Time Taken Comments Blood Pressure 107/75 10/27/2023 5:51 PM MANAGER RISK MANAGEMENT Pulse 105 10/27/2023 5:51 PM MANAGER RISK MANAGEMENT Temperature 37.2 C (99 F) 10/27/2023 5:51 PM MANAGER RISK MANAGEMENT Respiratory Rate 20 10/27/2023 5:51 PM MANAGER RISK MANAGEMENT Oxygen Saturation 96% 10/27/2023 5:51 PM MANAGER RISK MANAGEMENT Inhaled Oxygen Concentration - - Weight 74.8 kg (165 lb) 10/27/2023 5:47 PM MANAGER RISK MANAGEMENT Height 177.8 cm (5' 10) 10/27/2023 5:47 PM MANAGER RISK MANAGEMENT Body Mass Index 23.68 10/27/2023 5:47 PM MANAGER RISK MANAGEMENT Plan of Treatment Health Maintenance Due Date [...] BASIC METABOLIC PANEL STAT 10/27/2023 8:32 PM MANAGER RISK MANAGEMENT ACUTE HEPATITIS PANEL Routine 10/25/2018 12:55 PM MANAGER RISK MANAGEMENT from Last 3 Months or Most Recently Relevant to Health Maintenance Results * Basic metabolic panel (10/27/2023 8:32 PM MANAGER RISK MANAGEMENT) Sodium 136 135 - 145 mmol/L 10/27/2023 9:28 PM MANAGER RISK MANAGEMENT [facility] Comment:Reference intervals for this test were updated on 07/18/2023 to more accurately reflect our healthy population. There may be differences in the flagging of prior results with similar values performed with this method. Interpretation of those prior results can be made in the context of the updated reference intervals. Potassium 4.6 3.4 - 5.3 mmol/L 10/27/2023 9:28 PM MANAGER RISK MANAGEMENT [facility] Chloride 98 98 - 107 mmol/L 10/27/2023 9:28 PM MANAGER RISK MANAGEMENT [facility] Carbon Dioxide (CO2) 28 22 - 29 mmol/L 10/27/2023 9:28 PM MANAGER RISK MANAGEMENT [facility] Anion Gap 10 7 - 15 mmol/L 10/27/2023 9:28 PM MANAGER RISK MANAGEMENT [facility] Urea Nitrogen 14.3 6.0 - 20.0 mg/dL 10/27/2023 9:28 PM MANAGER RISK MANAGEMENT [facility] Creatinine 0.72 0.67 - 1.17 mg/dL 10/27/2023 9:28 PM MANAGER RISK MANAGEMENT [facility] GFR Estimate >90 >60 mL/min/1. 73m2 10/27/2023 9:28 PM MANAGER RISK MANAGEMENT [facility] Calcium 9.9 8.6 - 10.0 mg/dL 10/27/2023 9:28 PM MANAGER RISK MANAGEMENT [facility] Glucose 94 70 - 99 mg/dL 10/27/2023 9:28 PM MANAGER RISK MANAGEMENT [facility] Blood BLOOD SPECIMEN / Unknown Venipuncture / Unknown 10/27/2023 8:32 PM MANAGER RISK MANAGEMENT 10/27/2023 8:36 PM MANAGER RISK MANAGEMENT Alicia Diaz MD LAB - BLOOD ORDERABLES Final Result Performing Organization Address City/[facility] Co de Phone Number N LABORATORY [facility] [address] [place], [place] [address] [phone] * Acute hepatitis panel (10/25/2018 12:55 PM MANAGER RISK MANAGEMENT) Hepatitis A Antibody IgM Negative Negative 10/26/2018 9:56 AM MANAGER RISK MANAGEMENT [facility] Hepatitis B Core Antibody IgM Negative Negative 10/26/2018 9:56 AM MANAGER RISK MANAGEMENT [facility] Hepatitis B Surface Antigen Negative Negative 10/26/2018 9:56 AM MANAGER RISK MANAGEMENT [facility] Hepatitis C Antibody Negative Negative 10/26/2018 9:56 AM MANAGER RISK MANAGEMENT [facility] Blood specimen (specimen) STRUCTURE OF RIGHT UPPER LIMB / Unknown Venipuncture / Unknown 10/25/2018 12:55 PM MANAGER RISK MANAGEMENT 10/25/2018 1:02 PM MANAGER RISK MANAGEMENT Jairo Vera MD LAB - BLOOD ORDERABLES Final Result Performing Organization Address City/[facility] Co de Phone Number [facility] [address] [place] [address], [facility] [address] [place] [address] from Last 3 Months or Most Recently Relevant to Health Maintenance Insurance [facility] (Work) [id number] [place] [id number] Care Teams Clipman Relationship Specialty Start Date End Date No Ref-Primary, Physician PCP - General 06/30/14
--- OUTSIDE RECORDS SUMMARY | 2024-12-27 15:07 | XMS_ITS | Clinical Summary ---
Author Organization [facility] Address [address] [place] [address] Care Team Providers Care Button Tufter Name Role Phone No Primary/Referring, Phy Primary Care Provider Unavailable Source Comments You are receiving this document as you are listed as the primary care provider,follow-up provider, or the patient has been referred to you for consultation.This is in compliance with the Medicare and[facility] Incentive [facility],which states Providers who transition their patient to another setting of careor provider of care or refers their patient to another provider of care shouldprovide summary care record for each transition of care or referral. [employer] Allergies Active Allergy Reactions Criticality Noted Date Comments Penicillins Hives High 08/22/2015 Medications multi-vitamin (MULTIVITAMIN) tablet Take 1 Tab by mouth daily. Active citalopram (CELEXA) 20 MG tabletIndicatio ns:Depression Take 1 Tab by mouth daily for 30 days. Indications: Depression 30 Tab 8 Active Immunizations Immunization Administration Dates Next Due Influenza IIV4 (Quadrivalent) 0.5mL (97462) 01/21 Social History Tobacco Use Types Packs/Day [...] 8:33 PM 02/08/2018 4:31 PM Care Teams Button Tufter Relationship Specialty Start Date End Date No Primary/Referring, Phy PCP - General 08/17/15
--- OUTSIDE RECORDS SUMMARY | 2024-12-27 15:07 | XMS_ITS | Clinical Summary ---
Author Organization [facility] Address [address] [place] [address] Care Team Providers Care Gas Meter Repair Supervisor Name Role Phone Pcp, No Primary Care [...] every morning. 30 Tablet 08/31/2022 12:35 PM CLINIC SCHEDULER 09/01/2022 Active naltrexone (REVIA) 50 mg tabletIndicatio ns:Alcohol use disorder, severe, dependence (HC) Take 1 Tablet (50 mg) by mouth once daily. 30 Tablet 08/31/2022 12:35 PM CLINIC SCHEDULER 08/31/2022 Active multivitamin,th er and minerals (multivitamin with minerals) tabletIndicatio ns:Alcohol use disorder, severe, dependence (HC) Take 1 Tablet by mouth once daily. 30 Tablet 08/31/2022 12:35 PM CLINIC SCHEDULER 09/01/2022 Active hydrOXYzine pamoate (VISTARIL) 50 mg [...] on file Legal Sex Male 7:35 AM CLINIC SCHEDULER Gender Identity Not on file Sexual Orientation [...] ANTI HIV 1/2 Routine 10/07/2021 8:20 AM CLINIC SCHEDULER ANTI HCV Routine 10/07/2021 8:20 AM CLINIC SCHEDULER from Last 3 Months or Most Recently Relevant to Health Maintenance Results * ANTI HCV (10/07/2021 8:20 AM CLINIC SCHEDULER) HEPATITIS C ANTIBODY Non-React laine Non-React laine 10/07/2021 5:19 PM CLINIC SCHEDULER [facility] Comment:Antibodies to HCV no t detected; does not exclude the possibility of exposure to HCV. Blood BLOOD SPECIMEN / Unknown Venipuncture / Unknown 10/07/2021 8:20 AM CLINIC SCHEDULER 10/07/2021 10:11 AM CLINIC SCHEDULER us [facility] Mary GROCERY STORE ASSOCIATE SEND OUTS Final Result [facility] [address] [place] [address], * ANTI HIV 1/2 (10/07/2021 8:20 AM CLINIC SCHEDULER) HIV-1/HIV-2 ANTIBODY Non-Reacti ve Non-Reacti ve 10/07/2021 5:22 PM CLINIC SCHEDULER [facility] Comment:HIV-1 p24 and HIV-1/ HIV-2 Ab not detected. Blood BLOOD SPECIMEN / Unknown Venipuncture / Unknown 10/07/2021 8:20 AM CLINIC SCHEDULER 10/07/2021 10:11 AM CLINIC SCHEDULER us Kimberli Brennan Mary GROCERY STORE ASSOCIATE SEND OUTS Final Result [facility] [address] [place] [address], from Last 3 Months or Most Recently Relevant to Health Maintenance Insurance [facility] Advance Directives * Full Code (Latest Code [...] Preferences, Provider to review later Care Teams Gas Meter Repair Supervisor Relationship Specialty Start Date End Date Pcp, No . PCP - General 03/08/14
--- OUTSIDE RECORDS SUMMARY | 2024-12-27 15:07 | XMS_ITS | Encounter Summary ---
Author Organization [facility] Address [address] [place] [address] Care Team Providers Care Roller Turner Name Role Phone Self, Referred Primary Care Provider [phone] No Ref-Primary, Physician Primary Care Provider Darwin Valenzuela MD Unavailable [phone] Reason for Visit * Reason Comments Outpatient Therapy Treatment Plan Encounter Details Date Type Department Care Team (Late st Contact Info) Description 05/30/2011 [facility] Extended Documentation [facility] [address] [place] [address] Bora Manzanares, [facility] XXX RESIGNED XXX [address] [place], [place] [phone] Social History Tobacco Use Types Packs/Day Years Used Date Smoking Tobacco: Never Assessed Sex and Gender Information Value Date Recorded Sex Assigned at Not on file Legal Sex Male 5:02 AM CREAM TESTER Gender Identity Not on file Sexual Orientation Not on file documented as of this encounter Plan of Treatment Not on file documented as of this encounter Visit Diagnoses Not on filedocumented in this encounter Care Teams Roller Turner Relationship Specialty Start Date End Date Juan J Willoughby MD PCP - General Internal Medicine 02/14/11 06/29/14 No Ref-Primary, Physician PCP - General 06/30/14 Darwin Valenzuela MD [facility] [address] [place] [address] Assigned PCP 04/07/21 08/26/22 documented as of this encounter
--- OUTSIDE RECORDS SUMMARY | 2024-12-27 15:07 | XMS_ITS | Encounter Summary ---
Author Organization formerly [facility] Address [address] [place] [address] Care Team Providers Care Hand Fretted Instrument Maker Name Role Phone No Primary/Referring, Phreilly Primary [...] on filedocumented in this encounter Care Teams Hand Fretted Instrument Maker Relationship Specialty Start Date End Date No Primary/ReferringNahed PCP - General 08/17/15 documented as of this encounter
--- OUTSIDE RECORDS SUMMARY | 2024-12-27 16:07 | XMS_ITS | Encounter Summary ---
Author Organization [facility] Address [address] [place] [address] Care Team Providers Care Assistant Hall Director Name Role Phone No Primary/Referring, Phreilly Primary [...] on filedocumented in this encounter Care Teams Assistant Hall Director Relationship Specialty Start Date End Date No Primary/ReferringNahed PCP - General 08/17/15 documented as of this encounter
--- OUTSIDE RECORDS SUMMARY | 2024-12-27 16:07 | XMS_ITS | Clinical Summary ---
Author Organization [facility] Address [address] [place] [address] Care Team Providers Care Patient Observation Assistant Name Role Phone No Ref-Primary, Physician Primary [...] on file Legal Sex Male 5:02 AM SAMMYING MACHINE OPERATOR Gender Identity Not on file Sexual Orientation Not on file Last Filed Vital Signs Vital Sign Reading Time Taken Comments Blood Pressure 107/75 10/27/2023 5:51 PM SAMMYING MACHINE OPERATOR Pulse 105 10/27/2023 5:51 PM SAMMYING MACHINE OPERATOR Temperature 37.2 C (99 F) 10/27/2023 5:51 PM SAMMYING MACHINE OPERATOR Respiratory Rate 20 10/27/2023 5:51 PM SAMMYING MACHINE OPERATOR Oxygen Saturation 96% 10/27/2023 5:51 PM SAMMYING MACHINE OPERATOR Inhaled Oxygen Concentration - - Weight 74.8 kg (165 lb) 10/27/2023 5:47 PM SAMMYING MACHINE OPERATOR Height 177.8 cm (5' 10) 10/27/2023 5:47 PM SAMMYING MACHINE OPERATOR Body Mass Index 23.68 10/27/2023 5:47 PM SAMMYING MACHINE OPERATOR Plan of Treatment Health Maintenance Due Date [...] BASIC METABOLIC PANEL STAT 10/27/2023 8:32 PM SAMMYING MACHINE OPERATOR ACUTE HEPATITIS PANEL Routine 10/25/2018 12:55 PM SAMMYING MACHINE OPERATOR from Last 3 Months or Most Recently Relevant to Health Maintenance Results * Basic metabolic panel (10/27/2023 8:32 PM SAMMYING MACHINE OPERATOR) Sodium 136 135 - 145 mmol/L 10/27/2023 9:28 PM SAMMYING MACHINE OPERATOR [facility] Comment:Reference intervals for this test were updated on 07/18/2023 to more accurately reflect our healthy population. There may be differences in the flagging of prior results with similar values performed with this method. Interpretation of those prior results can be made in the context of the updated reference intervals. Potassium 4.6 3.4 - 5.3 mmol/L 10/27/2023 9:28 PM SAMMYING MACHINE OPERATOR [facility] Chloride 98 98 - 107 mmol/L 10/27/2023 9:28 PM SAMMYING MACHINE OPERATOR [facility] Carbon Dioxide (CO2) 28 22 - 29 mmol/L 10/27/2023 9:28 PM SAMMYING MACHINE OPERATOR [facility] Anion Gap 10 7 - 15 mmol/L 10/27/2023 9:28 PM SAMMYING MACHINE OPERATOR [facility] Urea Nitrogen 14.3 6.0 - 20.0 mg/dL 10/27/2023 9:28 PM SAMMYING MACHINE OPERATOR [facility] Creatinine 0.72 0.67 - 1.17 mg/dL 10/27/2023 9:28 PM SAMMYING MACHINE OPERATOR [facility] GFR Estimate >90 >60 mL/min/1. 73m2 10/27/2023 9:28 PM SAMMYING MACHINE OPERATOR [facility] Calcium 9.9 8.6 - 10.0 mg/dL 10/27/2023 9:28 PM SAMMYING MACHINE OPERATOR [facility] Glucose 94 70 - 99 mg/dL 10/27/2023 9:28 PM SAMMYING MACHINE OPERATOR [facility] Blood BLOOD SPECIMEN / Unknown Venipuncture / Unknown 10/27/2023 8:32 PM SAMMYING MACHINE OPERATOR 10/27/2023 8:36 PM SAMMYING MACHINE OPERATOR Alicia Diaz MD LAB - BLOOD ORDERABLES Final Result Performing Organization Address City/[facility] Co de Phone Number N LABORATORY [facility] [address] [place], [place] [address] [phone] * Acute hepatitis panel (10/25/2018 12:55 PM SAMMYING MACHINE OPERATOR) Hepatitis A Antibody IgM Negative Negative 10/26/2018 9:56 AM SAMMYING MACHINE OPERATOR [facility] Hepatitis B Core Antibody IgM Negative Negative 10/26/2018 9:56 AM SAMMYING MACHINE OPERATOR [facility] Hepatitis B Surface Antigen Negative Negative 10/26/2018 9:56 AM SAMMYING MACHINE OPERATOR [facility] Hepatitis C Antibody Negative Negative 10/26/2018 9:56 AM SAMMYING MACHINE OPERATOR [facility] Blood specimen (specimen) STRUCTURE OF RIGHT UPPER LIMB / Unknown Venipuncture / Unknown 10/25/2018 12:55 PM SAMMYING MACHINE OPERATOR 10/25/2018 1:02 PM SAMMYING MACHINE OPERATOR Jairo Vera MD LAB - BLOOD ORDERABLES Final Result Performing Organization Address City/[facility] Co de Phone Number [facility] [address] [place] [address], [facility] [address] [place] [address] from Last 3 Months or Most Recently Relevant to Health Maintenance Insurance [facility] NONE (Work) [id number] [place] [id number] Care Teams Patient Observation Assistant Relationship Specialty Start Date End Date No Ref-Primary, Physician PCP - General 06/30/14
--- OUTSIDE RECORDS SUMMARY | 2024-12-27 16:08 | XMS_ITS | Encounter Summary ---
Author Organization [facility] Address [address] [place] [address] Care Team Providers Care Stripper Shovel Operator Name Role Phone Self, Referred Primary Care Provider [phone] No Ref-Primary, Physician Primary Care Provider Darwin Valenzuela MD Unavailable [phone] Reason for Visit * Reason Comments Outpatient Therapy Treatment Plan Encounter Details Date Type Department Care Team (Late st Contact Info) Description 05/30/2011 [facility] Extended Documentation [facility] [address] [place] [address] Bora Manzanares, [facility] XXX RESIGNED XXX [address] [place], [place] [phone] Social History Tobacco Use Types Packs/Day Years Used Date Smoking Tobacco: Never Assessed Sex and Gender Information Value Date Recorded Sex Assigned at Not on file Legal Sex Male 5:02 AM APPRAISER ART Gender Identity Not on file Sexual Orientation Not on file documented as of this encounter Plan of Treatment Not on file documented as of this encounter Visit Diagnoses Not on filedocumented in this encounter Care Teams Stripper Shovel Operator Relationship Specialty Start Date End Date Juan J Willoughby MD PCP - General Internal Medicine 02/14/11 06/29/14 No Ref-Primary, Physician PCP - General 06/30/14 Darwin Valenzuela MD [facility] [address] [place] [address] Assigned PCP 04/07/21 08/26/22 documented as of this encounter
--- OUTSIDE RECORDS SUMMARY | 2024-12-27 16:08 | XMS_ITS | Clinical Summary ---
Author Organization [facility] Address [address] [place] [address] Care Team Providers Care Chlorination Operator Name Role Phone No Primary/Referring, Phy Primary Care Provider Unavailable Source Comments You are receiving this document as you are listed as the primary care provider,follow-up provider, or the patient has been referred to you for consultation.This is in compliance with the Medicare and[facility] EHR Incentive Program,which states Providers who transition their patient to another setting of careor provider of care or refers their patient to another provider of care shouldprovide summary care record for each transition of care or referral. Dónde Allergies Active Allergy Reactions Criticality Noted Date Comments Penicillins Hives High 08/22/2015 Medications multi-vitamin (MULTIVITAMIN) tablet Take 1 Tab by mouth daily. Active citalopram (CELEXA) 20 MG tabletIndicatio ns:Depression Take 1 Tab by mouth daily for 30 days. Indications: Depression 30 Tab 8 Active Immunizations Immunization Administration Dates Next Due Influenza IIV4 (Quadrivalent) 0.5mL (46872) 01/21 Social History Tobacco Use Types Packs/Day [...] 8:33 PM 02/08/2018 4:31 PM Care Teams Chlorination Operator Relationship Specialty Start Date End Date No Primary/Referring, Phy PCP - General 08/17/15
--- OUTSIDE RECORDS SUMMARY | 2024-12-27 16:08 | XMS_ITS | Clinical Summary ---
Author Organization [facility] Address [address] [place] [address] Care Team Providers Care Software Tools Engineer Name Role Phone Pcp, No Primary Care [...] every morning. 30 Tablet 08/31/2022 12:35 PM ONBOARDING SPECIALIST 09/01/2022 Active naltrexone (REVIA) 50 mg tabletIndicatio ns:Alcohol use disorder, severe, dependence (HC) Take 1 Tablet (50 mg) by mouth once daily. 30 Tablet 08/31/2022 12:35 PM ONBOARDING SPECIALIST 08/31/2022 Active multivitamin,th er and minerals (multivitamin with minerals) tabletIndicatio ns:Alcohol use disorder, severe, dependence (HC) Take 1 Tablet by mouth once daily. 30 Tablet 08/31/2022 12:35 PM ONBOARDING SPECIALIST 09/01/2022 Active hydrOXYzine pamoate (VISTARIL) 50 mg [...] on file Legal Sex Male 7:35 AM ONBOARDING SPECIALIST Gender Identity Not on file Sexual Orientation [...] ANTI HIV 1/2 Routine 10/07/2021 8:20 AM ONBOARDING SPECIALIST ANTI HCV Routine 10/07/2021 8:20 AM ONBOARDING SPECIALIST from Last 3 Months or Most Recently Relevant to Health Maintenance Results * ANTI HCV (10/07/2021 8:20 AM ONBOARDING SPECIALIST) HEPATITIS C ANTIBODY Non-React laine Non-React laine 10/07/2021 5:19 PM ONBOARDING SPECIALIST [facility] Comment:Antibodies to HCV no t detected; does not exclude the possibility of exposure to HCV. Blood BLOOD SPECIMEN / Unknown Venipuncture / Unknown 10/07/2021 8:20 AM ONBOARDING SPECIALIST 10/07/2021 10:11 AM ONBOARDING SPECIALIST us [facility] aMry MARKETING PROPOSAL SPECIALIST SEND OUTS Final Result [facility] [address] [place] [address], * ANTI HIV 1/2 (10/07/2021 8:20 AM ONBOARDING SPECIALIST) HIV-1/HIV-2 ANTIBODY Non-Reacti ve Non-Reacti ve 10/07/2021 5:22 PM ONBOARDING SPECIALIST [facility] Comment:HIV-1 p24 and HIV-1/ HIV-2 Ab not detected. Blood BLOOD SPECIMEN / Unknown Venipuncture / Unknown 10/07/2021 8:20 AM ONBOARDING SPECIALIST 10/07/2021 10:11 AM ONBOARDING SPECIALIST us Kimberli Brennan Mary MARKETING PROPOSAL SPECIALIST SEND OUTS Final Result [facility] [address] [place] [address], from Last 3 Months or Most Recently Relevant to Health Maintenance Insurance [facility] Advance Directives * Full Code [...] Preferences, Provider to review later Care Teams Software Tools Engineer Relationship Specialty Start Date End Date Pcp, No . PCP - General 03/08/14
== END 2024-12-27 16:10 | disposition left against medical advice (07) ==
LOC: ED 16:06
PROVIDERS: Emergency Provider Emergency Medicine; PCP Family Medicine
DX: Z53.21 Procedure and treatment not carried out due to patient leaving prior to being seen by health care provider (principal)
CPT/HCPCS: 99281

== ENCOUNTER 2025-04-15 12:27 | Outpatient (CLI) | payer MEDICAID, SELFPAY ==
--- OUTSIDE RECORDS SUMMARY | 2025-04-18 00:37 | XMS_ITS | Encounter Summary ---
Author Organization [facility] Address [address] [place] [id number] Care Team Providers Care Photoradio Operator Name Role Phone No Primary/Referring, Phreilly Primary [...] on filedocumented in this encounter Care Teams Photoradio Operator Relationship Specialty Start Date End Date No Primary/ReferringNahed PCP - General 08/17/15 documented as of this encounter
--- OUTSIDE RECORDS SUMMARY | 2025-04-18 00:37 | XMS_ITS | Clinical Summary ---
Author Organization [facility] Address [address] [place] [address] Care Team Providers Care Digital Media Intern Name Role Phone Pcp, No Primary Care [...] every morning. 30 Tablet 08/31/2022 12:35 PM COUNTER POCKET SEWER 09/01/2022 Active naltrexone (REVIA) 50 mg tabletIndicatio ns:Alcohol use disorder, severe, dependence (HC) Take 1 Tablet (50 mg) by mouth once daily. 30 Tablet 08/31/2022 12:35 PM COUNTER POCKET SEWER 08/31/2022 Active multivitamin,th er and minerals (multivitamin with minerals) tabletIndicatio ns:Alcohol use disorder, severe, dependence (HC) Take 1 Tablet by mouth once daily. 30 Tablet 08/31/2022 12:35 PM COUNTER POCKET SEWER 09/01/2022 Active hydrOXYzine pamoate (VISTARIL) 50 mg [...] on file Legal Sex Male 7:35 AM COUNTER POCKET SEWER Gender Identity Not on file Sexual Orientation [...] ANTI HIV 1/2 Routine 10/07/2021 8:20 AM COUNTER POCKET SEWER ANTI HCV Routine 10/07/2021 8:20 AM COUNTER POCKET SEWER from Last 3 Months or Most Recently Relevant to Health Maintenance Results * ANTI HCV (10/07/2021 8:20 AM COUNTER POCKET SEWER) HEPATITIS C ANTIBODY Non-React laine Non-React laine 10/07/2021 5:19 PM COUNTER POCKET SEWER [facility] Comment:Antibodies to HCV no t detected; does not exclude the possibility of exposure to HCV. Blood BLOOD SPECIMEN / Unknown Venipuncture / Unknown 10/07/2021 8:20 AM COUNTER POCKET SEWER 10/07/2021 10:11 AM COUNTER POCKET SEWER Yolanda Anu Hernandez PRINTING SCREEN ASSEMBLER SEND OUTS Final Result [facility] [address] [place] [address], [place] * ANTI HIV 1/2 (10/07/2021 8:20 AM COUNTER POCKET SEWER) HIV-1/HIV-2 ANTIBODY Non-Reacti ve Non-Reacti ve 10/07/2021 5:22 PM COUNTER POCKET SEWER [facility] Comment:HIV-1 p24 and HIV-1/ HIV-2 Ab not detected. Blood BLOOD SPECIMEN / Unknown Venipuncture / Unknown 10/07/2021 8:20 AM COUNTER POCKET SEWER 10/07/2021 10:11 AM COUNTER POCKET SEWER us Kimberli Hernandez PRINTING SCREEN ASSEMBLER SEND OUTS Final Result [facility] [address] [place] [address], [place] from Last 3 Months or Most Recently Relevant to Health Maintenance Insurance [facility] Advance Directives * Full Code (Latest [...] Preferences, Provider to review later Care Teams Digital Media Intern Relationship Specialty Start Date End Date Pcp, No . PCP - General 03/08/14
--- OUTSIDE RECORDS SUMMARY | 2025-04-18 00:38 | XMS_ITS | Clinical Summary ---
Author Organization [facility] Address [address] [place] [address] Care Team Providers Care Amphibious Operations Officer Name Role Phone No Primary/Referring, Phy Primary Care Provider Unavailable Source Comments You are receiving this document as you are listed as the primary care provider,follow-up provider, or the patient has been referred to you for consultation.This is in compliance with the Medicare and[facility] EHR Incentive Program,which states Providers who transition their patient to another setting of careor provider of care or refers their patient to another provider of care shouldprovide summary care record for each transition of care or referral. [employer] Allergies Active Allergy Reactions Criticality Noted Date Comments Penicillins Hives High 08/22/2015 Medications multi-vitamin (MULTIVITAMIN) tablet Take 1 Tab by mouth daily. Active citalopram (CELEXA) 20 MG tabletIndicatio ns:Depression Take 1 Tab by mouth daily for 30 days. Indications: Depression 30 Tab 8 Active Immunizations Immunization Administration Dates Next Due Influenza IIV4 (Quadrivalent) 0.5mL (12180) 01/21 Social History Tobacco Use Types Packs/Day [...] patient's age to complete this topic Insurance [facility] PMAP ADULT DENTAL Advance Directives * Full Code (Latest Code Status on File) Date Activated Date Inactivated Comments 02/10/2018 8:07 PM 02/11/2018 3:43 PM * Full Code Date Activated Date Inactivated Comments 02/05/2018 8:33 PM 02/08/2018 4:31 PM Care Teams Amphibious Operations Officer Relationship Specialty Start Date End Date No Primary/Referring, Phy PCP - General 08/17/15
== END 2025-04-15 12:28 | disposition home or self-care (01) ==
LOC: AMB 04-17 11:59
PROVIDERS: PCP Family Medicine; Visit Provider Family Medicine
DX: F10.129 Alcohol abuse with intoxication, unspecified (principal)
CPT/HCPCS: A0425; A0427

== ENCOUNTER 2025-04-15 12:58 | Emergency (ER) | payer MEDICAID, SELFPAY ==
[2025-04-15] VITALS (14 sets, daily range): BP systolic 114–151; BP diastolic 63–96; PULSE 68–108; RESP 14–22; TEMP 37.2; O2SAT 84–100; BMI 27.9
--- OUTSIDE RECORDS SUMMARY | 2025-04-15 13:01 | XMS_ITS | Clinical Summary ---
Author Organization [facility] Address [address] [place] [address] Care Team Providers Care Production Honing Machine Operator Name Role Phone No Primary/Referring, Phy Primary Care Provider Unavailable Source Comments You are receiving this document as you are listed as the primary care provider,follow-up provider, or the patient has been referred to you for consultation.This is in compliance with the Medicare and[facility] EHR Incentive Program,which states Providers who transition their patient to another setting of careor provider of care or refers their patient to another provider of care shouldprovide summary care record for each transition of care or referral. [employer] Allergies Active Allergy Reactions Criticality Noted Date Comments Penicillins Hives High 08/22/2015 Medications multi-vitamin (MULTIVITAMIN) tablet Take 1 Tab by mouth daily. Active citalopram (CELEXA) 20 MG tabletIndicatio ns:Depression Take 1 Tab by mouth daily for 30 days. Indications: Depression 30 Tab 8 Active Immunizations Immunization Administration Dates Next Due Influenza IIV4 (Quadrivalent) 0.5mL (59776) 01/21 Social History Tobacco Use Types Packs/Day [...] Services) 2000 Adult Preventive Visit 2002 HepB Vaccine (1) 2003 Cholesterol 2019 DTaP/Tdap/Td Vaccine (3 - Tdap) 11/19/2022 11/19/2012, 06/19/1997 COVID-19 Vaccine (1 - 2023-2 5 season) 2024 Influenza Vaccine (Season Ended) 2025 02/07/2018, 11/19/2012, 09/02/2010 Zoster/Shingles Vaccine (1 o f 2) 2034 MCV4 Vaccine Aged Out 04/09/2003 No longer eligi ble based on patient's age to complete this topic HPV Vaccine Aged Out No longer eligi ble based on patient's age to complete this topic HepA Vaccine Aged Out No longer eligi ble based on patient's age to complete this topic Hib Vaccine Aged Out No longer eligi ble based on patient's age to complete this topic IPV (Polio) Vaccine Aged Out No longe r eligible based on patient's age to complete this topic Meningococcal B Vaccine Aged Out No l onger eligible based on patient's age to complete this topic Pneumococcal Vaccine Aged Out No long er eligible based on patient's age to complete this topic Insurance [facility] PMAP ADULT DENTAL Advance Directives * Full Code (Latest Code Status on File) Date Activated Date Inactivated Comments 02/10/2018 8:07 PM 02/11/2018 3:43 PM * Full Code Date Activated Date Inactivated Comments 02/05/2018 8:33 PM 02/08/2018 4:31 PM Care Teams Production Honing Machine Operator Relationship Specialty Start Date End Date No Primary/Referring, Phy PCP - General 08/17/15
--- OUTSIDE RECORDS SUMMARY | 2025-04-15 13:01 | XMS_ITS | Encounter Summary ---
Author Organization [facility] Address [address] [place] [address] Care Team Providers Care Professor Of Biostatistics Name Role Phone No Primary/Referring, Phreilly Primary [...] on filedocumented in this encounter Care Teams Professor Of Biostatistics Relationship Specialty Start Date End Date No Primary/ReferringNahed PCP - General 08/17/15 documented as of this encounter
--- OUTSIDE RECORDS SUMMARY | 2025-04-15 13:01 | XMS_ITS | Encounter Summary ---
Author Organization [facility] Address [address] [place] [address] Care Team Providers Care Development Professional Name Role Phone Self, Referred Primary Care Provider [phone] No Ref-Primary, Physician Primary Care Provider Darwin Valenzuela MD Unavailable Reason for Visit * Reason Comments Outpatient Therapy Treatment Plan Encounter Details Date Type Department Care Team (Late st Contact Info) Description 05/30/2011 [facility] Extended Documentation [facility] [address] [place] [address] Bora Manzanares, [facility] XXX RESIGNED XXX [address] [place], [place] [phone] Social History Tobacco Use Types Packs/Day Years Used Date Smoking Tobacco: Never Assessed Sex and Gender Information Value Date Recorded Sex Assigned at Not on file Legal Sex Male 5:02 AM ELECT EQUIP MAINT ENG Gender Identity Not on file Sexual Orientation Not on file documented as of this encounter Plan of Treatment Not on file documented as of this encounter Visit Diagnoses Not on filedocumented in this encounter Care Teams Development Professional Relationship Specialty Start Date End Date Juan J Willoughby MD PCP - General Internal Medicine 02/14/11 06/29/14 No Ref-Primary, Physician PCP - General 06/30/14 Darwin Valenzuela MD [facility] [address] [place] [address] Assigned PCP 04/07/21 08/26/22 documented as of this encounter
--- OUTSIDE RECORDS SUMMARY | 2025-04-15 13:01 | XMS_ITS | Clinical Summary ---
Author Organization [facility] Address [address] [place] [address] Care Team Providers Care Wallcovering Texturer Name Role Phone Pcp, No Primary Care [...] every morning. 30 Tablet 08/31/2022 12:35 PM WELFARE CENTRE MANAGER 09/01/2022 Active naltrexone (REVIA) 50 mg tabletIndicatio ns:Alcohol use disorder, severe, dependence (HC) Take 1 Tablet (50 mg) by mouth once daily. 30 Tablet 08/31/2022 12:35 PM WELFARE CENTRE MANAGER 08/31/2022 Active multivitamin,th er and minerals (multivitamin with minerals) tabletIndicatio ns:Alcohol use disorder, severe, dependence (HC) Take 1 Tablet by mouth once daily. 30 Tablet 08/31/2022 12:35 PM WELFARE CENTRE MANAGER 09/01/2022 Active hydrOXYzine pamoate (VISTARIL) 50 mg [...] on file Legal Sex Male 7:35 AM WELFARE CENTRE MANAGER Gender Identity Not on file Sexual Orientation [...] Due Date Last Done Comments Tdap 1995 Depression screening for age 12+ 1996 BMI (ht and wt on same day) for age 18+ 2002 Hepatitis B series for 19+ ( 1 of 3 - 19+ 3-dose series) 2003 Pneumococcal series for age 6-49 (1 of 2 - PCV) 2002 Tetanus booster 2004 Lipids for age 35-44 2019 COVID-19 vaccine series (1 - 2023- season) Influenza Vaccine (Season Ended) 2025 HIV for age 15-65 Completed 10/07/2021 Hepatitis C screening for age 18-79 Completed 10/07 Procedures Procedure Name Priority Date/Time Associated Diagnosis Comments ANTI HIV 1/2 Routine 10/07/2021 8:20 AM WELFARE CENTRE MANAGER ANTI HCV Routine 10/07/2021 8:20 AM WELFARE CENTRE MANAGER from Last 3 Months or Most Recently Relevant to Health Maintenance Results * ANTI HCV (10/07/2021 8:20 AM WELFARE CENTRE MANAGER) HEPATITIS C ANTIBODY Non-React laine Non-React laine 10/07/2021 5:19 PM WELFARE CENTRE MANAGER [facility] Comment:Antibodies to HCV no t detected; does not exclude the possibility of exposure to HCV. Blood BLOOD SPECIMEN / Unknown Venipuncture / Unknown 10/07/2021 8:20 AM WELFARE CENTRE MANAGER 10/07/2021 10:11 AM WELFARE CENTRE MANAGER Yolanda Anu Hernandez MANAGER SOFTWARE SEND OUTS Final Result [facility] [address] [place] [address], [place] * ANTI HIV 1/2 (10/07/2021 8:20 AM WELFARE CENTRE MANAGER) HIV-1/HIV-2 ANTIBODY Non-Reacti ve Non-Reacti ve 10/07/2021 5:22 PM WELFARE CENTRE MANAGER [facility] Comment:HIV-1 p24 and HIV-1/ HIV-2 Ab not detected. Blood BLOOD SPECIMEN / Unknown Venipuncture / Unknown 10/07/2021 8:20 AM WELFARE CENTRE MANAGER 10/07/2021 10:11 AM WELFARE CENTRE MANAGER us Kimberli Hernandez MANAGER SOFTWARE SEND OUTS Final Result [facility] [address] [place] [address], [place] from Last 3 Months or Most Recently Relevant to Health Maintenance Insurance [facility] Advance Directives * Full Code [...] Preferences, Provider to review later Care Teams Wallcovering Texturer Relationship Specialty Start Date End Date Pcp, No . PCP - General 03/08/14
--- OUTSIDE RECORDS SUMMARY | 2025-04-15 13:01 | XMS_ITS | Clinical Summary ---
Author Organization [facility] Address [address] [place] [id number] Care Team Providers Care Tape Controlled Machine Stitcher Name Role Phone No Ref-Primary, Physician Primary [...] Resolved Date Alcohol intoxication 10/24/2018 019 Immunizations Immunization Administration Dates Next Due Hepatitis B, Peds (Engerix-B/Recombivax HB) 03/23,08/28/1997,07/09/1997 Influenza (IIV3) PF 09/02/2010 Influenza (intradermal) 11/19/2012 [...] on file Legal Sex Male 5:02 AM [facility] Gender Identity Not on file Sexual Orientation Not on file Last Filed Vital Signs Vital Sign Reading Time Taken Comments Blood Pressure 107/75 10/27/2023 5:51 PM [facility] Pulse 105 10/27/2023 5:51 PM [facility] Temperature 37.2 C (99 F) 10/27/2023 5:51 PM [facility] Respiratory Rate 20 10/27/2023 5:51 PM [facility] Oxygen Saturation 96% 10/27/2023 5:51 PM [facility] Inhaled Oxygen Concentration - - Weight 74.8 kg (165 lb) 10/27/2023 5:47 PM [facility] Height 177.8 cm (5' 10) 10/27/2023 5:47 PM [facility] Body Mass Index 23.68 10/27/2023 5:47 PM [facility] Plan of Treatment Health Maintenance Due Date Last Done Comments ADVANCE CARE PLANNING 1984 ANNUAL REVIEW OF HM ORDERS 1984 DEPRESSION ACTION PLAN 1984 YEARLY PREVENTIVE VISIT 1987 HIV SCREENING 1999 PHQ-9 02/20/2020 08/22/2019 PNEUMOCOCCAL VACCINE: PEDIATRICS (0 to 5 YEARS) AND AT-RISK PATIENTS (6 to 49 YEARS) (2 of 2 - PCV) 05/11/2024 05/11/2023 COVID-19 VACCINE ( season) 2024 LIPID 2024 INFLUENZA VACCINE (Season Ended) 2025 07/20/2021, 08/15/2019, 02/07/2018, Additional history exists DIABETES SCREENING 10/27/2026 10/27/2023, 0 10/24/2023, 08/12/2019, Additional history exists DTAP/TDAP/TD VACCINE (4 - Td or Tdap) 01/28/2031 01/28/2021, 11/19/2012, 06/19/1997 ZOSTER VACCINE (1 of 2) 2034 MENINGITIS VACCINE Aged Out 04/09/2003, 04/09/2003 No longer eligible based on patient's age to complete this topic HEPATITIS B VACCINE Completed 07/10/2003, 04/09/2003, 08/28/1997, Additional history exists HEPATITIS C SCREENING Completed 10/25/2018 HPV VACCINE Aged Out No longer eligi ble based on patient's age to complete this topic Procedures Procedure Name Priority Date/Time Associated Diagnosis Comments BASIC METABOLIC PANEL STAT 10/27/2023 8:32 PM [facility] ACUTE HEPATITIS PANEL Routine 10/25/2018 12:55 PM [facility] from Last 3 Months or Most Recently Relevant to Health Maintenance Results * Basic metabolic panel (10/27/2023 8:32 PM [facility]) Sodium 136 135 - 145 mmol/L 10/27/2023 9:28 PM [facility] Comment:Reference intervals for this test were updated on 07/18/2023 to more accurately reflect our healthy population. There may be differences in the flagging of prior results with similar values performed with this method. Interpretation of those prior results can be made in the context of the updated reference intervals. Potassium 4.6 3.4 - 5.3 mmol/L 10/27/2023 9:28 PM [facility] Chloride 98 98 - 107 mmol/L 10/27/2023 9:28 PM [facility] Carbon Dioxide (CO2) 28 22 - 29 mmol/L 10/27/2023 9:28 PM [facility] Anion Gap 10 7 - 15 mmol/L 10/27/2023 9:28 PM [facility] Urea Nitrogen 14.3 6.0 - 20.0 mg/dL 10/27/2023 9:28 PM [facility] Creatinine 0.72 0.67 - 1.17 mg/dL 10/27/2023 9:28 PM [facility] GFR Estimate >90 >60 mL/min/1. 73m2 10/27/2023 9:28 PM [facility] Calcium 9.9 8.6 - 10.0 mg/dL 10/27/2023 9:28 PM [facility] Glucose 94 70 - 99 mg/dL 10/27/2023 9:28 PM [facility] Blood BLOOD SPECIMEN / Unknown Venipuncture / Unknown 10/27/2023 8:32 PM [facility] 10/27/2023 8:36 PM [facility] Alicia Diaz MD LAB - BLOOD ORDERABLES Final Result Performing Organization Address City/[facility]/ZIP Co de Phone Number [facility] [address] [place] [address], [place] [phone] * Acute hepatitis panel (10/25/2018 12:55 PM [facility]) Hepatitis A Antibody IgM Negative Negative 10/26/2018 9:[address] [facility] Hepatitis B Core Antibody IgM Negative Negative 10/26/2018 9:[address] [facility] Hepatitis B Surface Antigen Negative Negative 10/26/2018 9:[address] [facility] Hepatitis C Antibody Negative Negative 10/26/2018 9:[address] [facility] Blood specimen (specimen) STRUCTURE OF RIGHT UPPER LIMB / Unknown Venipuncture / Unknown 10/25/2018 12:55 PM [facility] 10/25/2018 1:02 PM [facility] Jairo Vera MD LAB - BLOOD ORDERABLES Final Result Performing Organization Address City/[facility] Co de Phone Number [facility] [address] [place] [address], [facility] [address] [place] [address] from Last 3 Months or Most Recently Relevant to Health Maintenance Insurance [employer] [facility] NONE (Work) [id number] [place] [id number] Care Teams Tape Controlled Machine Stitcher Relationship Specialty Start Date End Date No Ref-Primary, Physician PCP - General 06/30/14
[2025-04-15] MEDS: OLANZapine 5 MG/ML inj 10 MG IM (13:14)
--- NOTE | 2025-04-15 13:26 | ED.ALCOHOL ---
HPI - Alcohol General Date Seen: 04/15/25 <Daniele Robertson Devon DO - Last Filed: 04/15/25 20:59> Chief Complaint: Alcohol/Intoxication <Daniele Ailyn Devon DO - Last Filed: 04/15/25 20:59> Stated Complaint: ETOH <Daniele Osorio DO - Last Filed: 04/15/25 20:59> Time Seen by Provider: 04/15/25 13:00 <Daniele Osorio DO - Last Filed: 04/15/25 20:59> Source: EMS <Daniele Osorio DO - Last Filed: 04/15/25 20:59> Mode of arrival: EMS <Daniele P Devon, DO - Last Filed: 04/15/25 20:59> Limitations: altered mental status <Daniele Osorio DO - Last Filed: 04/15/25 20:59> History of Present Illness HPI narrative: Patient is a 39-year-old man presenting via EMS for alcohol intoxication. He was at the local hotel when he was post to check out but did not. Due to this staff went to check on him in his room. There they found him in his bed intoxicated with alcohol bottles around the bed and he was naked. They had difficulty waking him up. Police and EMS were called. He had an alcohol level of 0.38 by Breathalyzer. EMS states vital signs were stable but he does appear very intoxicated and keeps yelling ?it hurts so bad, but will not say what hurts. Patient is too altered at this time to answer any of my questions. <Danielejudith Osorio DO - Last Filed: 04/15/25 20:59> Related Data Home Medications: Previous Rx's ?Medication ?Instructions ?Recorded dolutegravir 50 mg tablet (Tivicay) 50 mg PO DAILY #28 tabs 12/23/24 doxycycline hyclate 100 mg capsule 100 mg PO BID 7 days #14 caps 12/23/24 emtricitabine 133 mg-tenofovir 1 tab PO DAILY #28 tabs 12/23/24 disoproxil fumarate 200 mg tablet (Truvada) metronidazole 500 mg tablet 2,000 mg (4 x 500 mg) PO ONCE #4 12/23/24 tabs escitalopram oxalate 20 mg tablet 20 mg PO QDAY #90 tabs 01/27/25 trazodone 100 mg tablet 100 mg PO QHS PRN insomnia #90 tabs 01/27/25 <Daniele Osorio DO - Last Filed: 04/15/25 20:59> Allergies/Adverse Reactions: Allergies Allergy/AdvReac Type Severity Reaction Status Date / Time Penicillins Allergy Mild Rash Verified 12/22/24 20:37 <Daniele sOorio DO - Last Filed: 04/15/25 20:59> Review of Systems Status of ROS Reports: 10 or more systems reviewed and unremarkable except as noted in History and below <Daniele Osorio DO - Last Filed: 04/15/25 20:59> PFSH PFSH Social History: Social History What is your current living situation?: I presently have a place to live In the past 12 months, utilities in danger of being shut off: no In past 12 months, lack of transportation kept you from medical appts, meetings, work, or getting things needed for daily living: no In the past 12 mos, have been you worried that your food would run out before you had money to buy more?: never true In the past 12 mos, the food you bought just didn't last and you didn't have money to buy more?: never true Smoking Status: Current every day smoker Do you use any of these nicotine containing products: None Second hand tobacco smoke exposure: No How often do you have a drink containing alcohol: 4 or more times a week How many standard drinks containing alcohol do you have on a typical day: 10 or more How often do you have six or more drinks on one occasion: Daily or almost daily AUDIT-C Alcohol total score: 12 Non-prescribed substance use: marijuana (any form) How often does anyone, including family, friends and others, physically hurt you: never How often does anyone, including family, friends and others, insult or talk down to you: never How often does anyone, including family, friends and others, threaten you with harm: never How often does anyone, including family, friends and others, scream or curse at you: never service: No <DO Shruti Rosas Last Filed: 04/15/25 20:59> Exam Narrative: Exam Narrative: Const: Well-nourished, Well-developed, appears intoxicated Eyes: PERRL, no conjunctival injection, and symmetrical lids HENT: Atraumatic external nose and ears. Moist mucous membranes. Neck: Symmetric, trachea midline, No thyromegaly. CVS: RRR, No murmurs or gallops. Peripheral pulses 2+ and equal in all extremities RESP: Unlabored respiratory effort. Clear to auscultation bilaterally. GI: Nontender/Nondistended, No rebound or guarding. MSK:Extremities w/o deformity, Normal Active ROM Skin: Warm, Dry. No rashes or lesions. Neuro: Normal Muscle tone, No focal neurological deficits. Psych: Awake, Alert, but unable to answer questions and appears intoxicated. Physical exam is difficult to thoroughly complete due to his intoxication. <Daniele Osorio, DO - Last Filed: 04/15/25 20:59> Const: Vital Signs, click to edit/add: Vital Signs - 24 hr 04/15/25 13:08 04/15/25 13:20 04/15/25 14:28 Temperature 99 F Pulse Rate [Pulse Oximeter] 92 88 108 H Respiratory Rate 22 18 18 Blood Pressure [Ri ght Upper Arm] 123/90 H 121/82 126/91 H Pulse Oximetry 100 100 98 Oxygen Delivery Me thod Room Air Room Air Room Air 04/15/25 14:29 04/15/25 14:29 04/15/25 14:41 Temperature Pulse Rate [Pulse Oximeter] 103 H Respiratory Rate 18 18 Blood Pressure [Ri ght Upper Arm] 151/63 H Pulse Oximetry 97 97 Oxygen Delivery Hi thod Room Air 04/15/25 14:58 04/15/25 15:10 04/15/25 15:20 Temperature Pulse Rate [Pulse Oximeter] 87 98 93 Respiratory Rate 18 14 16 Blood Pressure [Ri ght Upper Arm] 129/71 120/92 H 139/90 H Pulse Oximetry 97 84 L 95 Oxygen Delivery Hi thod Room Air Room Air Room Air 04/15/25 15:29 04/15/25 17:00 04/15/25 18:00 Temperature Pulse Rate [Pulse Oximeter] 87 68 Respiratory Rate 16 16 18 Blood Pressure [Ri ght Upper Arm] 122/70 127/87 Pulse Oximetry 91 97 Oxygen Delivery Hi thod Room Air Room Air 04/15/25 19:00 04/15/25 20:09 04/15/25 22:00 Temperature Pulse Rate [Pulse Oximeter] 75 89 93 Respiratory Rate 18 18 18 Blood Pressure [Ri ght Upper Arm] 129/96 H 119/79 114/69 Pulse Oximetry 96 94 94 Oxygen Delivery Me thod Room Air Room Air Room Air <Daniele Osorio DO - Last Filed: 04/15/25 20:59> Vital Signs, click to edit/add: Vital Signs - 24 hr 04/15/25 13:08 04/15/25 13:20 04/15/25 14:28 Temperature 99 F Pulse Rate [Pulse Oximeter] 92 88 108 H Respiratory Rate 22 18 18 Blood Pressure [Ri ght Upper Arm] 123/90 H 121/82 126/91 H Pulse Oximetry 100 100 98 Oxygen Delivery Me thod Room Air Room Air Room Air 04/15/25 14:29 04/15/25 14:29 04/15/25 14:41 Temperature Pulse Rate [Pulse Oximeter] 103 H Respiratory Rate 18 18 Blood Pressure [Ri ght Upper Arm] 151/63 H Pulse Oximetry 97 97 Oxygen Delivery Me thod Room Air 04/15/25 14:58 04/15/25 15:10 04/15/25 15:20 Temperature Pulse Rate [Pulse Oximeter] 87 98 93 Respiratory Rate 18 14 16 Blood Pressure [Ri ght Upper Arm] 129/71 120/92 H 139/90 H Pulse Oximetry 97 84 L 95 Oxygen Delivery Me thod Room Air Room Air Room Air 04/15/25 15:29 04/15/25 17:00 04/15/25 18:00 Temperature Pulse Rate [Pulse Oximeter] 87 68 Respiratory Rate 16 16 18 Blood Pressure [Ri ght Upper Arm] 122/70 127/87 Pulse Oximetry 91 97 Oxygen Delivery Me thod Room Air Room Air 04/15/25 19:00 04/15/25 20:09 04/15/25 22:00 Temperature Pulse Rate [Pulse Oximeter] 75 89 93 Respiratory Rate 18 18 18 Blood Pressure [Ri ght Upper Arm] 129/96 H 119/79 114/69 Pulse Oximetry 96 94 94 Oxygen Delivery Me thod Room Air Room Air Room Air <Bri Bullard MD - Last Filed: 04/16/25 01:47> Course Reevaluation(s) Time of Reevaluation #1: 01:46 <Bri Bullard MD - Last Filed: 04/16/25 01:47> Reevaluation #1: Dr. Bullard- EMS requesting Ativan prior to discharge for jitteriness. 1 mg oral Ativan is prescribed per their request. Patient transferred to detox. Three day supply of medications provided. Observed ambulating from bathroom to bed, was able to converse with nurse and was mildly unsteady on feet but safe for ambulation and transfer. <Bri Bullard MD - Last Filed: 04/16/25 01:47> Vital Signs Vital signs: Initial Vital Signs Temperature 99 F 04/15/25 13:08 Temperature Source Temporal Artery Scan 04/15/25 13:08 Pulse Rate 92 04/15/25 13:08 Respiratory Rate 22 04/15/25 13:08 Blood Pressure 123/90 H 04/15/25 13:08 Blood Pressure Mean 101 04/15/25 13:08 Pulse Oximetry 100 04/15/25 13:08 Oxygen Delivery Method Room Air 04/15/25 13:08 Vital Signs Temperature 99 F 04/15/25 13:08 Pulse Rate 92 04/15/25 13:08 Respiratory Rate 22 04/15/25 13:08 Blood Pressure 123/90 H 04/15/25 13:08 Pulse Oximetry 100 04/15/25 13:08 Oxygen Delivery Method Room Air 04/15/25 13:08 Temperature 99 F 04/15/25 13:08 Pulse Rate 93 04/15/25 22:00 Respiratory Rate 18 04/15/25 22:00 Blood Pressure 114/69 04/15/25 22:00 Pulse Oximetry 94 04/15/25 22:00 Oxygen Delivery Method Room Air 04/15/25 22:00 <Daniele Osorio DO - Last Filed: 04/15/25 20:59> Initial Vital Signs Temperature 99 F 04/15/25 13:08 Temperature Source Temporal Artery Scan 04/15/25 13:08 Pulse Rate 92 04/15/25 13:08 Respiratory Rate 22 04/15/25 13:08 Blood Pressure 123/90 H 04/15/25 13:08 Blood Pressure Mean 101 04/15/25 13:08 Pulse Oximetry 100 04/15/25 13:08 Oxygen Delivery Method Room Air 04/15/25 13:08 Vital Signs Temperature 99 F 04/15/25 13:08 Pulse Rate 92 04/15/25 13:08 Respiratory Rate 22 04/15/25 13:08 Blood Pressure 123/90 H 04/15/25 13:08 Pulse Oximetry 100 04/15/25 13:08 Oxygen Delivery Method Room Air 04/15/25 13:08 Temperature 99 F 04/15/25 13:08 Pulse Rate 93 04/15/25 22:00 Respiratory Rate 18 04/15/25 22:00 Blood Pressure 114/69 04/15/25 22:00 Pulse Oximetry 94 04/15/25 22:00 Oxygen Delivery Method Room Air 04/15/25 22:00 <Bri Bullard MD - Last Filed: 04/16/25 01:47> Medications Administered Medications: Generic Name Dose Route Start Last Admin Trade Name Freq PRN Reason Stop Dose Admin Lorazepam 1 mg 04/16/25 01:43 04/16/25 01:46 Lorazepam 1 Mg Tablet PO 04/16/25 01:44 1 mg ONCE ONE Administration Discontinued Medications Generic Name Dose Route Start Last Admin Trade Name Freq PRN Reason Stop Dose Admin Ketamine HCl 270 mg 04/15/25 14:47 04/15/25 15:07 Ketamine Hcl 100 Mg/Ml Inj IM 04/15/25 14:48 270 mg ONCE ONE Administration Midazolam HCl 2 mg 04/15/25 14:08 04/15/25 14:16 Midazolam Hcl 1 Mg/Ml Inj IVP 04/15/25 14:09 2 mg ONCE ONE Administration Olanzapine 10 mg 04/15/25 13:08 04/15/25 13:14 Olanzapine 5 Mg/Ml Inj IM 04/15/25 13:09 10 mg ONCE ONE Administration Olanzapine 5 mg 04/15/25 15:07 04/15/25 14:23 Olanzapine 5 Mg/Ml Inj IVP 04/15/25 15:08 5 mg ONCE ONE Administration <Daniele Osorio DO - Last Filed: 04/15/25 20:59> Generic Name Dose Route Start Last Admin Trade Name Freq PRN Reason Stop Dose Admin Lorazepam 1 mg 04/16/25 01:43 04/16/25 01:46 Lorazepam 1 Mg Tablet PO 04/16/25 01:44 1 mg ONCE ONE Administration Discontinued Medications Generic Name Dose Route Start Last Admin Trade Name Rehan PRN Reason Stop Dose Admin Ketamine HCl 270 mg 04/15/25 14:47 04/15/25 15:07 Ketamine Hcl 100 Mg/Ml Inj IM 04/15/25 14:48 270 mg ONCE ONE Administration Midazolam HCl 2 mg 04/15/25 14:08 04/15/25 14:16 Midazolam Hcl 1 Mg/Ml Inj IVP 04/15/25 14:09 2 mg ONCE ONE Administration Olanzapine 10 mg 04/15/25 13:08 04/15/25 13:14 Olanzapine 5 Mg/Ml Inj IM 04/15/25 13:09 10 mg ONCE ONE Administration Olanzapine 5 mg 04/15/25 15:07 04/15/25 14:23 Olanzapine 5 Mg/Ml Inj IVP 04/15/25 15:08 5 mg ONCE ONE Administration <Bri Bullard MD - Last Filed: 04/16/25 01:47> MDM - Alcohol MDM Narrative Medical decision making narrative: Patient is a 39-year-old male presenting to the emergency department for alcohol intoxication. He 1st arrived he was concerned not stand bed. We tried to walk around he has a very high fall risk and danger to self. Initially gave him some Zyprexa any fell sleep for short amount of time. After that he woke back up in tried some Versed. This continue to not work and it required multiple staff members to hold him down so she did not hurt himself falling due to his heavy intoxication. We have initially gave him 5 more mg of Zyprexa and 2 mg of Versed without any improvement. Four-point restraints were placed. He then got ketamine and fell asleep. Restraints were then removed. Tylenol level, salicylate level, CBC, CMP, EtOH was also ordered. CBC showed no concerning abnormalities. CMP shows a very mildly elevated AST and slightly elevated sodium. Acetaminophen and salicylate levels were within normal limits. ETOH level returned at 0.39% <Daniele Osorio DO - Last Filed: 04/15/25 20:59> Lab Data Labs: Lab Results 04/15/25 Range/Units 15:30 WBC 6.06 (4.50-11.00) K/uL RBC 5.40 (4.30-5.90) m/uL Hgb 16.4 (13.5-17.5) gm/dL Hct 48.8 (37.0-53.0) % MCV 90 (80-100) fL MCH 30 (26-34) pg MCHC 34 (32-36) gm/dL RDW Coeff of Amanda 12.3 (11.5-15.5) % Plt Count 220 (140-440) K/uL Neut % (Auto) 60.1 (42.0-72.0) % Lymph % (Auto) 33.7 (20-44) % Forrest % (Auto) 4.1 (0.0-11.0) % Eos % (Auto) 1.7 (0.0-7.0) % Baso % (Auto) 0.2 (0.0-3.0) % Neut # (Auto) 3.65 (1.7-7.0) K/uL Lymph # (Auto) 2.04 (0.90-2.90) K/uL Forrest # (Auto) 0.20 (0.00-0.90) K/UL Eos # (Auto) 0.10 (0.00-0.50) K/uL Baso # (Auto) 0.01 (0.00-0.30) K/uL Abs Immat Gran (auto) 0.01 (0.00-0.30) K/uL Imm/Tot Granulo (auto) 0.2 % Sodium 152 H (135-149) mmol/L Potassium 3.6 (3.6-5.1) mmol/L Chloride 113 (96-114) mmol/L Carbon Dioxide 27 (20-32) mmol/L Anion Gap 12 (7-15) mEq/L BUN 10 (5-24) mg/dL Creatinine 1.0 (0.5-1.5) mg/dL Estimated Creat Clear 104.58 Estimated GFR 98 ml/min Glucose 114 (60-115) mg/dL Calcium 8.2 L (8.4-10.6) mg/dL Total Bilirubin 0.5 (0.1-1.5) mg/dL AST 46 H (12-35) U/L ALT 44 (4-50) U/L Alkaline Phosphatase 59 (40-150) U/L Total Protein 6.6 (6.0-8.3) g/dL Albumin 4.2 (3.3-5.0) g/dL Salicylates < 1.0 L (1.0-10) mg/dL Acetaminophen < 10.0 (10.0-30.0) ug/mL Ethyl Alcohol 0.39 H* (0.01-0.03) % <Daniele Osorio, DO - Last Filed: 04/15/25 20:59> Lab Results 04/15/25 Range/Units 15:30 WBC 6.06 (4.50-11.00) K/uL RBC 5.40 (4.30-5.90) m/uL Hgb 16.4 (13.5-17.5) gm/dL Hct 48.8 (37.0-53.0) % MCV 90 (80-100) fL MCH 30 (26-34) pg MCHC 34 (32-36) gm/dL RDW Coeff of Amanda 12.3 (11.5-15.5) % Plt Count 220 (140-440) K/uL Neut % (Auto) 60.1 (42.0-72.0) % Lymph % (Auto) 33.7 (20-44) % Forrest % (Auto) 4.1 (0.0-11.0) % Eos % (Auto) 1.7 (0.0-7.0) % Baso % (Auto) 0.2 (0.0-3.0) % Neut # (Auto) 3.65 (1.7-7.0) K/uL Lymph # (Auto) 2.04 (0.90-2.90) K/uL Forrest # (Auto) 0.20 (0.00-0.90) K/UL Eos # (Auto) 0.10 (0.00-0.50) K/uL Baso # (Auto) 0.01 (0.00-0.30) K/uL Abs Immat Gran (auto) 0.01 (0.00-0.30) K/uL Imm/Tot Granulo (auto) 0.2 % Sodium 152 H (135-149) mmol/L Potassium 3.6 (3.6-5.1) mmol/L Chloride 113 (96-114) mmol/L Carbon Dioxide 27 (20-32) mmol/L Anion Gap 12 (7-15) mEq/L BUN 10 (5-24) mg/dL Creatinine 1.0 (0.5-1.5) mg/dL Estimated Creat Clear 104.58 Estimated GFR 98 ml/min Glucose 114 (60-115) mg/dL Calcium 8.2 L (8.4-10.6) mg/dL Total Bilirubin 0.5 (0.1-1.5) mg/dL AST 46 H (12-35) U/L ALT 44 (4-50) U/L Alkaline Phosphatase 59 (40-150) U/L Total Protein 6.6 (6.0-8.3) g/dL Albumin 4.2 (3.3-5.0) g/dL Salicylates < 1.0 L (1.0-10) mg/dL Acetaminophen < 10.0 (10.0-30.0) ug/mL Ethyl Alcohol 0.39 H* (0.01-0.03) % <Bri Bullard MD - Last Filed: 04/16/25 01:47> Discharge Plan Discharge Clinical Impression: Alcoholic intoxication Qualifiers: Complication of substance-induced condition: uncomplicated Qualified Code(s): F10.920 - Alcohol use, unspecified with intoxication, uncomplicated <Daniele Osorio DO - Last Filed: 04/15/25 20:59> Patient Disposition: Home, Self-Care <Daniele Osorio DO - Last Filed: 04/15/25 20:59> Condition: Improved <Daniele Osorio DO - Last Filed: 04/15/25 20:59> Instructions: Abuse of Alcohol (DC) <Daniele Osorio DO - Last Filed: 04/15/25 20:59> Additional Instructions: I recommend you reach an O2 detox center to have helped quitting alcohol. If you continue drinking heavily like this you will from it. Cirrhosis is a very unpleasant way to go <Daniele Osorio DO - Last Filed: 04/15/25 20:59> Prescriptions: No Action Tivicay 50 mg tablet 50 mg PO DAILY Qty: 28 0RF emtricitabine-tenofovir (TDF) [Truvada] 133-200 mg tablet 1 tab PO DAILY Qty: 28 0RF doxycycline hyclate 100 mg capsule 100 mg PO BID 7 Days Qty: 14 0RF metronidazole 500 mg tablet 2,000 mg PO ONCE Qty: 4 0RF escitalopram oxalate 20 mg tablet 20 mg PO QDAY Qty: 90 0RF trazodone 100 mg tablet 100 mg PO QHS PRN (Reason: insomnia) Qty: 90 1RF <Daniele Osorio DO - Last Filed: 04/15/25 20:59> Follow Up/Referrals: Shahid Mcdonnell MD [Primary Care Provider, Family Practice] <Daniele Osorio DO - Last Filed: 04/15/25 20:59> Stand Alone Forms: MyHealth Info Instructions <Daniele Osorio DO - Last Filed: 04/15/25 20:59>
[2025-04-15] MEDS: MIDAZOLAM HCL 1 MG/ML inj 2 MG IVP (14:16)
[2025-04-15] MEDS: OLANZapine 5 MG/ML inj IVP (14:23)
[2025-04-15] MEDS: KETAMINE HCL 100 MG/ML inj 270 MG IM (15:07)
[2025-04-15 15:36] LABS: Basophils Absolute Auto 0.01 K/uL (0.00-0.30); Basophils Percent Auto 0.2 % (0.0-3.0); Eosinophils Percent Auto 1.7 % (0.0-7.0); Hematocrit 48.8 % (37.0-53.0); Hemoglobin* 16.4 gm/dL (13.5-17.5); Immature Granulocytes Abs Auto 0.01 K/uL (0.00-0.30); Immature Granulocytes Pct Auto 0.2 %; Lymphocytes Absolute Auto 2.04 K/uL (0.90-2.90); Lymphocytes Percent Auto 33.7 % (20-44); Mean Corpuscular HGB Conc 34 gm/dL (32-36); Mean Corpuscular Hemoglobin 30 pg (26-34); Mean Corpuscular Volume 90 fL (80-100); Monocytes Percent Auto 4.1 % (0.0-11.0); Neutrophils Absolute Auto 3.65 K/uL (1.7-7.0); Neutrophils Percent Auto 60.1 % (42.0-72.0); Platelet Count* 220 K/uL (140-440); RDW Coefficient of Variation % 12.3 % (11.5-15.5); White Blood Count* 6.06 K/uL (4.50-11.00)
[2025-04-15 15:48] LABS: Slide Review Reflex No
[2025-04-15 16:04] LABS: Albumin* 4.2 g/dL (3.3-5.0); Chloride* 113 mmol/L (96-114); Potassium* 3.6 mmol/L (3.6-5.1); Sodium* 152 mmol/L (135-149)
[2025-04-15 16:06] LABS: Blood Urea Nitrogen* 10 mg/dL (5-24); Est. Creatinine Clearance* 104.58; Estimated Glomerular Filt Rate 98 ml/min
[2025-04-15 16:07] LABS: Alanine Aminotransferase* 44 U/L (4-50); Alkaline Phosphatase* 59 U/L (40-150); Anion Gap 12 mEq/L (7-15); Aspartate Amino Transferase* 46 U/L (12-35); Bilirubin Total* 0.5 mg/dL (0.1-1.5); Calcium* 8.2 mg/dL (8.4-10.6); Carbon Dioxide* 27 mmol/L (20-32); Glucose* 114 mg/dL (60-115); Total Protein* 6.6 g/dL (6.0-8.3)
[2025-04-15 16:10] LABS: Acetaminophen* < 10.0 ug/mL (10.0-30.0); Salicylate* < 1.0 mg/dL (1.0-10)
[2025-04-15 16:21] LABS: Ethanol* 0.39 % (0.01-0.03)
[2025-04-16] MEDS: LORazepam 1 MG TABLET PO (01:46)
== END 2025-04-16 01:46 | disposition home or self-care (01) ==
PROVIDERS: Emergency Provider Student in an Organized Health Care Education/Training Program; PCP Family Medicine
DX: F10.129 Alcohol abuse with intoxication, unspecified (principal)
CPT/HCPCS: 36415; 80053; 80143; 80179; 82077; 85025; 94761; 96372; 96374; 99284; A9270; J2250; J3490

== ENCOUNTER 2025-04-16 01:35 | Outpatient (CLI) | payer MEDICAID, SELFPAY ==
--- OUTSIDE RECORDS SUMMARY | 2025-04-18 00:40 | XMS_ITS | Clinical Summary ---
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 Gender Identity Not on file Sexual Orientation Not on file Last Filed Vital Signs Vital Sign Reading Time Taken Comments Blood Pressure 107/75 10/27/2023 5:51 PM SWIMMING INSTRUCTOR Pulse 105 10/27/2023 5:51 PM SWIMMING INSTRUCTOR Temperature 37.2 C (99 F) 10/27/2023 5:51 PM SWIMMING INSTRUCTOR Respiratory Rate 20 10/27/2023 5:51 PM SWIMMING INSTRUCTOR Oxygen Saturation 96% 10/27/2023 5:51 PM SWIMMING INSTRUCTOR Inhaled Oxygen Concentration - - Weight 74.8 kg (165 lb) 10/27/2023 5:47 PM SWIMMING INSTRUCTOR Height 177.8 cm (5' 10) 10/27/2023 5:47 PM SWIMMING INSTRUCTOR Body Mass Index 23.68 10/27/2023 5:47 PM SWIMMING INSTRUCTOR Plan of Treatment Health Maintenance Due Date [...] BASIC METABOLIC PANEL STAT 10/27/2023 8:32 PM SWIMMING INSTRUCTOR ACUTE HEPATITIS PANEL Routine 10/25/2018 12:55 PM SWIMMING INSTRUCTOR from Last 3 Months or Most Recently Relevant to Health Maintenance Results * Basic metabolic panel (10/27/2023 8:32 PM SWIMMING INSTRUCTOR) Sodium 136 135 - 145 mmol/L 10/27/2023 9:28 PM SWIMMING INSTRUCTOR [facility] Comment:Reference intervals for this test were updated on 07/18/2023 to more accurately reflect our healthy population. There may be differences in the flagging of prior results with similar values performed with this method. Interpretation of those prior results can be made in the context of the updated reference intervals. Potassium 4.6 3.4 - 5.3 mmol/L 10/27/2023 9:28 PM SWIMMING INSTRUCTOR [facility] Chloride 98 98 - 107 mmol/L 10/27/2023 9:28 PM SWIMMING INSTRUCTOR [facility] Carbon Dioxide (CO2) 28 22 - 29 mmol/L 10/27/2023 9:28 PM SWIMMING INSTRUCTOR [facility] Anion Gap 10 7 - 15 mmol/L 10/27/2023 9:28 PM SWIMMING INSTRUCTOR [facility] Urea Nitrogen 14.3 6.0 - 20.0 mg/dL 10/27/2023 9:28 PM SWIMMING INSTRUCTOR [facility] Creatinine 0.72 0.67 - 1.17 mg/dL 10/27/2023 9:28 PM SWIMMING INSTRUCTOR [facility] GFR Estimate >90 >60 mL/min/1. 73m2 10/27/2023 9:28 PM SWIMMING INSTRUCTOR [facility] Calcium 9.9 8.6 - 10.0 mg/dL 10/27/2023 9:28 PM SWIMMING INSTRUCTOR [facility] Glucose 94 70 - 99 mg/dL 10/27/2023 9:28 PM SWIMMING INSTRUCTOR [facility] Blood BLOOD SPECIMEN / Unknown Venipuncture / Unknown 10/27/2023 8:32 PM SWIMMING INSTRUCTOR 10/27/2023 8:36 PM SWIMMING INSTRUCTOR Alicia Diaz MD LAB - BLOOD ORDERABLES Final Result Performing Organization Address [facility]/ZIP Co de Phone Number [facility] [address] [place] [address], [facility] [phone] * Acute hepatitis panel (10/25/2018 12:55 PM SWIMMING INSTRUCTOR) Hepatitis A Antibody IgM Negative Negative 10/26/2018 9:56 AM SWIMMING INSTRUCTOR [facility] Hepatitis B Core Antibody IgM Negative Negative 10/26/2018 9:56 AM SWIMMING INSTRUCTOR [facility] Hepatitis B Surface Antigen Negative Negative 10/26/2018 9:56 AM SWIMMING INSTRUCTOR [facility] Hepatitis C Antibody Negative Negative 10/26/2018 9:56 AM SWIMMING INSTRUCTOR [facility] Blood specimen (specimen) STRUCTURE OF RIGHT UPPER LIMB / Unknown Venipuncture / Unknown 10/25/2018 12:55 PM SWIMMING INSTRUCTOR 10/25/2018 1:02 PM SWIMMING INSTRUCTOR Jairo Vera MD LAB - BLOOD ORDERABLES Final Result Performing Organization Address [facility] Co de Phone Number [facility] [address] [place] [address], [facility] [address] [place] [address] from Last 3 Months or Most Recently Relevant to Health Maintenance Insurance [employer] PMAP [facility] NONE (Work) [id number] [place] [id number] Care Teams Grounds Foreman Relationship Specialty Start Date End Date No Ref-Primary, Physician PCP - General 06/30/14
--- OUTSIDE RECORDS SUMMARY | 2025-04-18 00:41 | XMS_ITS | Encounter Summary ---
Author Organization [facility] Address [address] [place] [address] Care Team Providers Care Clinical Review Specialist Name Role Phone Self, Referred Primary Care Provider [phone] No Ref-Primary, Physician Primary Care Provider Darwin Valenzuela MD Unavailable [phone] Reason for Visit * Reason Comments Outpatient Therapy Treatment Plan Encounter Details Date Type Department Care Team (Late st Contact Info) Description 05/30/2011 [facility] Extended Documentation [facility] [address] [place] [address] Bora Manzanares, [facility] XXX RESIGNED XXX [address] [place], [place] [id number] Social History Tobacco Use Types Packs/Day Years Used Date Smoking Tobacco: Never Assessed Sex and Gender Information Value Date Recorded Sex Assigned at Not on file 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
== END 2025-04-16 01:36 | disposition home or self-care (01) ==
LOC: AMB 04-17 13:39
PROVIDERS: PCP Family Medicine; Visit Provider Family Medicine
DX: F10.129 Alcohol abuse with intoxication, unspecified (principal)
CPT/HCPCS: A0425; A0428